=== PATIENT | female | born 2000 | race Caucasian/White ===

== ENCOUNTER → 2019-06-23 11:01 | Outpatient (BNVA) | payer BC, SELFPAY | PROVIDERS: PCP Nurse Practitioner Family; Visit Provider Nurse Practitioner Family | DX: I10 Essential (primary) hypertension (principal); R73.09 Other abnormal glucose; E11.9 Type 2 diabetes mellitus without complications; R53.83 Other fatigue; E78.2 Mixed hyperlipidemia; E55.9 Vitamin D deficiency, unspecified | CPT/HCPCS: 80053; 80061; 82306; 83036; 84443; 85025 ==

== ENCOUNTER 2019-07-01 10:53 | Outpatient (CLI) | payer BC, SELFPAY ==
--- NOTE | 2019-07-01 11:45 | US_ITS ---
WS: [id number] ULTRASOUND RIGHT BREAST HISTORY: lump COMPARISON: None available. TECHNIQUE: 2-D and Doppler. Ultrasound is directed to the 1:00 axis RIGHT breast at the area of palpable abnormality. There is no mass or soft tissue abnormality. No skin thickening or distortion. US/US breast RT limited* [id number] IMPRESSION: BI-RADS: 1-Negative FOLLOW-UP: Age 38
== END 2019-07-01 10:54 | disposition home or self-care (01) ==
LOC: RAD 11:01
PROVIDERS: PCP Nurse Practitioner Family; Visit Provider Nurse Practitioner
DX: N63.12 Unspecified lump in the right breast, upper inner quadrant (principal)
CPT/HCPCS: 76642

== ENCOUNTER → 2019-09-17 15:55 | Outpatient (BNVA) | payer BC, SELFPAY | PROVIDERS: PCP Nurse Practitioner Family; Visit Provider Nurse Practitioner Family | DX: N91.2 Amenorrhea, unspecified (principal); M79.671 Pain in right foot; M72.2 Plantar fascial fibromatosis; H60.90 Unspecified otitis externa, unspecified ear | CPT/HCPCS: 81025 ==

== ENCOUNTER 2019-09-19 09:50 | Outpatient (CLI) | payer BC, SELFPAY ==
--- NOTE | 2019-09-19 10:20 | XRR_ITS ---
PROCEDURE INFORMATION: Exam: XR Right Foot Complete Exam date and time: 09/19/2019 10:32 AM Age: 19 years old Clinical indication: Pain; Foot; Right; Additional info: Foot pain TECHNIQUE: Imaging protocol: XR Right foot. Views: 3 or more views. COMPARISON: No relevant prior studies available. FINDINGS: Bones/joints: hindfoot-midfoot and midfoot-forefoot articulations are normal. metatarsals and the phalanges without an acute process. subtalar joint and the tibiotalar joint appears normal. Soft tissues: Normal. XR/XR foot RT min 3V* [id number] IMPRESSION: Normal foot
== END 2019-09-19 09:51 | disposition home or self-care (01) ==
LOC: RAD 09:58
PROVIDERS: PCP Nurse Practitioner Family; Visit Provider Nurse Practitioner Family
DX: M79.671 Pain in right foot (principal); M72.2 Plantar fascial fibromatosis
CPT/HCPCS: 73630

== ENCOUNTER → 2019-11-12 10:36 | Outpatient (BNVA) | payer BC, SELFPAY | PROVIDERS: PCP Nurse Practitioner Family; Visit Provider Nurse Practitioner Family | DX: E11.9 Type 2 diabetes mellitus without complications (principal); E55.9 Vitamin D deficiency, unspecified; R53.83 Other fatigue | CPT/HCPCS: 80053; 83036; 85025 ==

== ENCOUNTER → 2020-04-19 10:21 | Outpatient (BNVA) | payer SELFPAY | PROVIDERS: PCP Nurse Practitioner Family; Visit Provider Nurse Practitioner Family | DX: E11.9 Type 2 diabetes mellitus without complications (principal); J02.0 Streptococcal pharyngitis | CPT/HCPCS: 80053 ==

== ENCOUNTER → 2020-06-25 08:44 | Outpatient (BNVA) | payer OTHER, SELFPAY | PROVIDERS: PCP Nurse Practitioner Family; Visit Provider Psychiatry & Neurology Neurology | DX: F33.2 Major depressive disorder, recurrent severe without psychotic features (principal); F41.1 Generalized anxiety disorder; F43.10 Post-traumatic stress disorder, unspecified | CPT/HCPCS: 90791 ==

== ENCOUNTER → 2020-07-02 11:22 | Outpatient (BNVA) | payer OTHER, SELFPAY | PROVIDERS: PCP Nurse Practitioner Family; Visit Provider Nurse Practitioner Family | DX: E55.9 Vitamin D deficiency, unspecified (principal); E11.9 Type 2 diabetes mellitus without complications; Z13.6 Encounter for screening for cardiovascular disorders; R53.83 Other fatigue | CPT/HCPCS: 80053; 80061; 81003; 82306; 83036; 84439; 84443; 85025 ==

== ENCOUNTER 2020-07-14 21:48 | Emergency (ER) | payer OTHER, SELFPAY ==
[2020-07-14 22:06] VITALS: BP 136/108; PULSE 124; RESP 21; TEMP 36.7; O2SAT 98; BMI 62.7
--- NOTE | 2020-07-14 22:21 | W.ED.GENADLT ---
HPI - General Adult General: Chief complaint: General Medical Stated complaint: HIGH B/P Time Seen by Provider: 07/14/20 22:18 History of Present Illness: HPI narrative: Patient is a 20-year-old female comes to the ED with possible anxiety attack. Patient says she does have a history of anxiety and depression. She also has a past medical history of type 2 diabetes and takes Metformin. 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 She says she is never had symptoms like this before. Denies any fever, chills, upper respiratory symptoms, abdominal pain, vomiting, bladder or bowel symptoms. Patient did say that she did not eat much today and is unsure may be that is causing her current symptoms. Associated symptoms: Reports dyspnea and nausea; Deny chest pain, headache(s), rash, palpitations or vomiting Review of Systems Const: Denies: fever(s), chills or fatigue Eyes: Denies: change in vision or eye discomfort ENMT: Denies: throat pain, odynophagia, nasal discharge or nasal congestion Card: Reports: lightheadedness; Denies: chest pain, palpitations, edema, swelling of feet/ankles, dyspnea on exertion or orthopnea Resp: Reports: dyspnea; Denies: productive cough or non-productive cough GI: Reports: nausea; Denies: abdominal pain, vomiting, diarrhea, constipation or hematochezia : Denies: flank pain, dysuria or hematuria Musc: Reports: back pain; Denies: neck pain or extremity swelling Skin/Breast: Denies: rash or new lesions Neuro: Denies: headache(s), numbness in extremities or weakness in extremities [facility] ED PFSH: Medical History Amenorrhea Anxiety delivery delivered Depression Diabetes mellitus, type II Fatigue History of pancreatitis Hypertension screen Strep pharyngitis Surgical History Status post cholecystectomy Social History Smoking and tobacco status: never smoked Second hand smoke exposure: No Alcohol intake: never Desire information about alcohol rehabilitation?: No Counseling given: No Desire information about substance/drug rehabilitation?: No Counseling given: No Caregiver/support person: Yes Lives independently: Yes Household members: spouse Physical Exam Const: COMMON NORMALS: patient oriented x3 and alert GENERAL APPEARANCE: cooperative and comfortable NUTRITIONAL APPEARANCE: obese morbidly obese HENMT: COMMON NORMALS: normocephalic HEAD & SCALP: normocephalic MOUTH: Normal oral and palatal mucosa present THROAT: posterior oropharynx normal and uvula midline Neck/C-Spine: COMMON NORMALS: supple GENERAL: Yes normal visual inspection Resp: COMMON NORMALS: normal respiratory effort, No retractions, No use of accessory muscles and clear to auscultation bilaterally EFFORT & INSPECTION: Yes able to speak in complete sentences, Yes tachypneic (21 resp), No respiratory distress and No labored AUSCULTATION: clear to auscultation bilaterally and no wheezes Cardio: COMMON NORMALS: regular rate, regular rhythm, S1 normal heart sound present, S2 normal heart sound present, No gallops present (Cardio), No clicks present (Cardio), No murmurs present (Cardio) and Peripheral pulses 2+ throughout RATE: regular rate RHYTHM: regular rhythm HEART SOUNDS: S1 normal heart sound present and S2 normal heart sound present PERIPHERAL PULSES: Peripheral pulses 2+ throughout GI: COMMON NORMALS: Normal to inspection, nondistended, normoactive bowel sounds present, Soft to palpation, non-tender and no masses PALPATION: Yes Soft to palpation : COMMON NORMALS: Yes no CVA tenderness BLADDER/KIDNEY EXAM: Yes no CVA tenderness Back/Pelvis: COMMON NORMALS: no CVA tenderness Extremity: COMMON NORMALS: normal to inspection Neuro: COMMON NORMALS: patient oriented x3 and moves all extremities SENSORIUM/ORIENTATION: Yes alert Skin: GENERAL SKIN EXAM: dry skin Course Reevaluation(s): Reevaluation #1: After patient received Vistaril her symptoms greatly improved. She also was given some Zofran to help with her nausea. Patient's respirations are normal at 18 and pulse 98. Time: 23:51 Vital Signs: Vital signs: Vital Signs Temperature 98.0 F 07/14/20 22:06 Pulse Rate 124 H 07/14/20 22:06 Respiratory Rate 21 H 07/14/20 22:06 Blood Pressure 136/108 07/14/20 22:06 Pulse Oximetry 98 07/14/20 22:06 MDM - General Adult MDM Narrative: Medical decision making narrative: Patient is a 20-year-old female comes to the ED with acute onset of lightheadedness, nausea, chest tightness and mid back pain. Exam findings patient tachypneic at 21 breaths/min lungs are clear to auscultation bilaterally. Chest x-ray shows no acute findings. CBC and CMP were unremarkable. hCG negative, D-dimer 0.27 which is normal and troponin negative. EKG showed normal sinus rhythm with no ST segment elevation or depression seen. Patient was given Vistaril and zofran while here in the ED and her symptoms greatly improved. Patient diagnosed with acute anxiety and discharged home. She was told to follow-up with PCP in 7 to 10 days reevaluation. Return to ED precautions given. Patient understood and agree with plan. Lab Data: Attestation: I reviewed the patient's lab results. Labs: Lab Results 07/14/20 07/14/20 07/14/20 Range/Units 23:00 23:00 23:00 WBC 8.0 (4.0-10.0) 10^3/ uL RBC 4.92 (4.1-5.3) 10^6/u L Hgb 14.0 (11.5-15.3) g/dL Hct 43.2 (37.0-47.0) % MCV 87.8 (81-99) fL MCH 28.5 (28.0-34.0) pg MCHC 32.4 (30.0-36.0) g/dL RDW 12.6 (12.1-15.1) % Plt Count 323 (130-400) 10^3/c mm MPV 10.1 (7.4-10.4) fL Neut % (Auto) 57.2 % Lymph % (Auto) 35.9 % [place] % (Auto) 5.3 % Eos % (Auto) 0.8 % Baso % (Auto) 0.5 % Neut # (Auto) 4.57 (1.8-7.7) 10^3/u L Lymph # (Auto) 2.9 (0.8-4.8) 10^3/u L [place] # (Auto) 0.4 (0.2-0.9) 10^3/u L Eos # (Auto) 0.1 (0.0-0.8) 10^3/u L Baso # (Auto) 0.0 (0.0-0.1) 10^3/u L Nucleated RBC % (a uto) 0 % Nucleated RBCs # 0.0 /100WBC D-Dimer (0-0.59) ug/mIFE U Sodium 138 (136-145) mmol/L Potassium 4.6 (3.5-5.1) mmol/L Chloride 101 (98-107) mmol/L Carbon Dioxide 25 (22-29) mmol/L Anion Gap 16.6 (5-19) BUN 15 (6-20) mg/dL Creatinine 0.6 (0.5-0.9) mg/dL GFR Calculation 125.0 (90-130) mL/min Glucose 173 H (65-115) mg/dL Calculated Osmolal ity 291 (285-295) mOsm/k g Calcium 9.3 (8.5-10.5) mg/dL Total Bilirubin 0.2 (0.15-1.2) mg/dL AST 12 (0-32) U/L ALT 17 (0-33) U/L Alkaline Phosphata se 79 (35-105) IU/L Troponin T Gen 5 n g/L 6 (0-10) ng/L Total Protein 7.4 (6.6-8.7) g/dL Albumin 4.7 (3.5-5.2) g/dL Globulin 2.7 (1.3-4.6) g/dL HCG, Qual (Negative) 07/14/20 07/14/20 Range/Units 23:00 23:00 WBC (4.0-10.0) 10^3/ uL RBC (4.1-5.3) 10^6/u L Hgb (11.5-15.3) g/dL Hct (37.0-47.0) % MCV (81-99) fL MCH (28.0-34.0) pg MCHC (30.0-36.0) g/dL RDW (12.1-15.1) % Plt Count (130-400) 10^3/c mm MPV (7.4-10.4) fL Neut % (Auto) % Lymph % (Auto) % [place] % (Auto) % Eos % (Auto) % Baso % (Auto) % Neut # (Auto) (1.8-7.7) 10^3/u L Lymph # (Auto) (0.8-4.8) 10^3/u L [place] # (Auto) (0.2-0.9) 10^3/u L Eos # (Auto) (0.0-0.8) 10^3/u L Baso # (Auto) (0.0-0.1) 10^3/u L Nucleated RBC % (a uto) % Nucleated RBCs # /100WBC D-Dimer <= 0.27 (0-0.59) ug/mIFE U Sodium (136-145) mmol/L Potassium (3.5-5.1) mmol/L Chloride (98-107) mmol/L Carbon Dioxide (22-29) mmol/L Anion Gap (5-19) BUN (6-20) mg/dL Creatinine (0.5-0.9) mg/dL GFR Calculation (90-130) mL/min Glucose (65-115) mg/dL Calculated Osmolal ity (285-295) mOsm/k g Calcium (8.5-10.5) mg/dL Total Bilirubin (0.15-1.2) mg/dL AST (0-32) U/L ALT (0-33) U/L Alkaline Phosphata se (35-105) IU/L Troponin T Gen 5 n g/L (0-10) ng/L Total Protein (6.6-8.7) g/dL Albumin (3.5-5.2) g/dL Globulin (1.3-4.6) g/dL HCG, Qual Negative (Negative) Imaging Data^: CXR: Attestation: I personally reviewed and interpreted this imaging study as follows: Radiologist's impression: [address] [address] XRay Report Signed Patient: Sharad Ghosh Unit #: [id number] : 2000 Age/Sex: 20 / F ADM Date: 07/14/20 Loc: ER Room/Bed: Attending Dr: Ordering Provider/Ordering MD: Cesar Abad Date of Service: 07/14/20 Procedure(s): XR chest 1V portable [id number] Accession Number(s): [id number] Report Number: [id number] PROCEDURE INFORMATION: Exam: XR Chest Exam date and time: 07/14/2020 10:35 PM Age: 20 years old Clinical indication: Sternal or substernal pain; Additional info: Chest tightness/ high BP TECHNIQUE: Imaging protocol: XR of the chest. Views: 1 view. COMPARISON: CR Chest 1 [place] [id number] 11/14/2017 4:39 AM FINDINGS: Lungs: Unremarkable. No consolidation. Pleural spaces: Unremarkable. No pleural effusion. No pneumothorax. Heart/Mediastinum: Unremarkable. No cardiomegaly. Bones/joints: Unremarkable. XR/XR chest 1V portable [id number] IMPRESSION: No acute findings. Dictated By: Barry Pacheco Signed By: Barry Pacheco Signed Date/Time: 07/14/202318 DD/ 16 EKG Data^: EKG 1: Attestation: I personally reviewed and interpreted this EKG as follows: EKG interpretation date: 07/14/20 Interpretation: Normal sinus rhythm, 98 bpm, no ST segment elevation or depression seen. Computer generated interpretation: Chest X-Ray 07/14/20 22:31 IMPRESSION: No acute findings. Discharge Plan Discharge Patient Disposition: Home Clinical Impression: Acute anxiety Condition: Stable Prescriptions: No Action ibuprofen 800 mg tablet 800 mg PO Q8H RF: 0 acetaminophen [Tylenol] 325 mg tablet 325 mg PO QID PRNRF: 0 cyclobenzaprine 10 mg tablet 10 mg PO TID 30 Days Qty: 30 RF: 0 lidocaine 5 % adhesive patch,medicated 1 patch topical DAILY 30 Days Qty: 30 RF: 0 (DME) Dexcom G4 Plating Inspector-Share Kit Misc See Rx Instructions .Route Qty: 1 RF: 11 metformin 1,000 mg tablet 1,000 mg PO BID 30 Days Qty: 60 RF: 2 Discharge Orders: Discharge ED (Routine); Ordered 07/15/20 Ordered By: Cesar Abad Referrals: DUY Santoro, SALES ADMINISTRATION SPECIALIST [Primary Care Provider] - Discharge Diet: Regular Discharge Activity: Increase activity as tolerated Patient Instructions: Anxiety (ED) Activity Restrictions/Additional Instructions: Follow-up with medical provider as directed in 7 to 10 days for reevaluation. Continue taking all home medications as prescribed. Return to the ER or your medical provider if condition worsens. Please read and understand discharge instructions. Thank you for choosing [facility] for your healthcare needs today. Please realize this is an emergency room and that we are providing you with a medical screening exam and this may not be complete and all inclusive of all the testing and or work up that you may need to determine your ailment or severity of your illness. It is very important that you follow up as instructed or that you return to the Emergency Department should you have concerns or if your condition changes or worsens in any way. Coding Level of Care Code ED Bleach Chlorinator for Corinne Fwkassandra Exam Comprehensive
--- NOTE | 2020-07-14 22:31 | ECG_ITS ---
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 Measurements Intervals [place] Rate: 98 P: 33 AK: 176 QRS: -10 QRSD: 116 T: 13 QT: 334 QTc: 426 Interpretive Statements SINUS RHYTHM WITH SINUS ARRHYTHMIA MODERATE INTRAVENTRICULAR CONDUCTION DELAY [110+ ms QRS DURATION] MODERATE VOLTAGE CRITERIA FOR LVH, CONSIDER NORMAL VARIANT [MEETS CRITERIA IN ONE OF: R(aVL), S(V1), R(V5), R(V5/V6)+S(V1)] No previous ECG available for comparison Electronically Signed On 07-15-2020 10:16:32 CDT by Willi Cuenca M.D. [email or web address]
--- NOTE | 2020-07-14 22:31 | XRR_ITS ---
PROCEDURE INFORMATION: Exam: XR Chest Exam date and time: 07/14/2020 10:35 PM Age: 20 years old Clinical indication: Sternal or substernal pain; Additional info: Chest tightness/ high BP TECHNIQUE: Imaging protocol: XR of the chest. Views: 1 view. COMPARISON: CR Chest 1 [place] [id number] 11/14/2017 4:39 AM FINDINGS: Lungs: Unremarkable. No consolidation. Pleural spaces: Unremarkable. No pleural effusion. No pneumothorax. Heart/Mediastinum: Unremarkable. No cardiomegaly. Bones/joints: Unremarkable. XR/XR chest 1V portable [id number] IMPRESSION: No acute findings.
[2020-07-14] MEDS: hyDROXYzine 25 mg Capsule 50 MG PO (22:58)
[2020-07-14 23:06] LABS: Basophils % 0.5 %; Eosinophils # 0.1 10^3/uL (0.0-0.8); Eosinophils % 0.8 %; Hematocrit 43.2 % (37.0-47.0); Lymphocytes # 2.9 10^3/uL (0.8-4.8); Lymphocytes % 35.9 %; Mean Corpuscular HGB Conc 32.4 g/dL (30.0-36.0); Mean Corpuscular Hemoglobin 28.5 pg (28.0-34.0); Mean Corpuscular Volume 87.8 fL (81-99); Mean Platelet Volume 10.1 fL (7.4-10.4); Monocytes # 0.4 10^3/uL (0.2-0.9); Monocytes % 5.3 %; Neutrophils # 4.57 10^3/uL (1.8-7.7); Neutrophils % 57.2 %; Nucleated Red Blood Cells % 0 %; Platelet Count 323 10^3/cmm (130-400); Red Blood Count 4.92 10^6/uL (4.1-5.3); Red Cell Distribution Width 12.6 % (12.1-15.1)
[2020-07-14 23:16] LABS: HCG, Serum Qual Negative (Negative)
[2020-07-14 23:24] LABS: Troponin T (5th) Once 6 ng/L (0-10)
[2020-07-14 23:26] LABS: Alanine Aminotransferase 17 U/L (0-33); Albumin Level 4.7 g/dL (3.5-5.2); Alkaline Phosphatase 79 IU/L (35-105); Anion Gap 16.6 (5-19); Aspartate Amino Transferase 12 U/L (0-32); Blood Urea Nitrogen 15 mg/dL (6-20); Calcium 9.3 mg/dL (8.5-10.5); Carbon Dioxide 25 mmol/L (22-29); Chloride 101 mmol/L (98-107); Globulin 2.7 g/dL (1.3-4.6); Glucose 173 mg/dL (65-115); Osmolality Calculated 291 mOsm/kg (285-295); Potassium 4.6 mmol/L (3.5-5.1); Sodium 138 mmol/L (136-145); Total Bilirubin 0.2 mg/dL (0.15-1.2); Total Protein 7.4 g/dL (6.6-8.7)
[2020-07-14 23:55] LABS: D Dimer <= 0.27 ug/mIFEU (0-0.59)
[2020-07-15] MEDS: ondansetron 2 mg/ML SDV 2 mL 4 MG IVP (00:08)
== END 2020-07-15 00:24 | disposition home or self-care (01) ==
PROVIDERS: Emergency Provider Physician Assistant; PCP Nurse Practitioner Family
DX: F41.9 Anxiety disorder, unspecified (principal); Z79.84 Long term (current) use of oral hypoglycemic drugs; E11.9 Type 2 diabetes mellitus without complications
CPT/HCPCS: 71045; 80053; 84484; 84703; 85025; 85378; 93005; 96374; 99283; J2405

== ENCOUNTER → 2020-09-20 11:54 | Outpatient (BNVA) | payer OTHER, SELFPAY | PROVIDERS: PCP Nurse Practitioner Family; Visit Provider Nurse Practitioner Family | DX: J06.9 Acute upper respiratory infection, unspecified (principal); Z20.822 Contact with and (suspected) exposure to COVID-19 | CPT/HCPCS: 87635 ==

== ENCOUNTER 2020-11-05 09:33 | Emergency (ER) | payer OTHER, SELFPAY ==
[2020-11-05 09:41] VITALS: BP 179/135; PULSE 74; RESP 15; TEMP 36.4; O2SAT 96; BMI 61.0
[2020-11-05] MEDS: acetaminophen 500 mg Tablet 1000 MG PO (11:32)
--- NOTE | 2020-11-05 11:38 | W.ED.GENADLT ---
HPI - General Adult General: Chief complaint: Urogenital-Female Stated complaint: difficulty urinating, flank pain Time Seen by Provider: 11/05/20 09:45 History of Present Illness: HPI narrative: CC: Difficulty urinating and flank pain HPI: [20] yo patient w/ hx of DM presenting to the ED w/ symptoms of b/l flank x 2 days and decreased urination x 1 day, nausea/vomiting. Patient has had decreased Po intake due to the nausea. She has had 1 episode of emesis. Denies hx of pyelonephritis in the past. No hx of abdominal surgeries, denies diarrhea/melena/hematochezia, vaginal discharge/bleeding/ or cramps. No associated hx of kidney stones. Denies chest pain, SOB, and palpitations today. Patient reports that she has had 1 day of difficulty urinating. Denies any bowel symptoms. Denies any injuries to the back. No history of IV drug use. Onset: 2 days ago Duration: ongoing Location: home Severity: moderate Review of Systems Narrative: Constitutional: No fever, no chills. HEENT: No vision changes CV: No chest pain, no palpitations PULM: No productive cough, no dyspnea. GI: No abdominal pain, +N/+V/-D, +b/l-sided flank pain. : +Difficulty urinating MSKEL: No muscle pain SKIN: No new rashes, no lesions. NEURO: No headache, no focal weakness. HEME: No visible bruises PSYCH: Normal mood PFSH ED PFSH: Medical History (Updated 11/05/20 @ 11:44 by Dwight Sauer MD) Amenorrhea Anxiety delivery delivered Depression Diabetes mellitus, type II Fatigue History of pancreatitis Hypertension screen Psychiatric care Strep pharyngitis Surgical History Status post cholecystectomy Social History Smoking and tobacco status: never smoked Second hand smoke exposure: No Alcohol intake: never Desire information about alcohol rehabilitation?: No Counseling given: No Desire information about substance/drug rehabilitation?: No Counseling given: No Caregiver/support person: Yes Lives independently: Yes Household members: spouse Female Reproductive History: Date of last menstrual period: 10/15/20 Physical Exam Narrative: EXAM NARRATIVE: Head: Atraumatic Eyes: PERRL, conjunctiva without injection, eyes tracking ENT: Mucous membrane moist NECK: Supple without lymphadenopathy LUNGS: LCTAB CV: RRR ABDOMEN: Soft, b/l-sided flank tenderness, no guarding or rebound tenderness, no doran?s sign, no rovsing/mcburney/obturator signs EXTREMITY: Normal ROM SKIN: No rash or erythema NEURO: Awake and alert. No focal weakness PSYCH: Cooperative mood and affect Course Vital Signs: Vital signs: Vital Signs Temperature 97.5 F L 11/05/20 09:41 Pulse Rate 75 11/05/20 15:39 Respiratory Rate 18 11/05/20 15:39 Blood Pressure 165/106 11/05/20 15:39 Pulse Oximetry 100 11/05/20 15:39 MDM - General Adult MDM Narrative: Medical decision making narrative: [20]yo patient w/ hx of DM presenting with dysuria/flank pain, N/V and on exam b/l L >R-sided CVA tenderness. Will workup for pyelonephritis vs obstructive uropathy. Unlikely Infected Urolithiasis, AAA, cholecystitis, pancreatitis, SBO, appendicitis, or other acute abdomen. Workup: CBC, CMP, Lipase, UA reflex Urine culture, CT if persistent pain Lab findings: wnl CT did not show any signs of obstructive uropathy. On reassessment, patient improved with medication. Patient is able to tolerate p.o. without any difficulty. Continues to be medically stable without any focal tenderness to palpation after medication. Patient is urinating without any difficulty. Creatinine within normal limit. No suspicion for any acute processes at this time. Position: Discharge. Patient is given strict return question any worsening pain/nausea/vomiting, fever/chills, or any new or concerning complaints. Lab Data: Labs: Lab Results 11/05/20 11/05/20 11/05/20 Range/Units 11:50 11:50 11:50 WBC 10.0 (4.0-10.0) 10^3/ uL RBC 4.69 (4.1-5.3) 10^6/u L Hgb 13.5 (11.5-15.3) g/dL Hct 42.2 (37.0-47.0) % MCV 90.0 (81-99) fl MCH 28.8 (28.0-34.0) pg MCHC 32.0 (30.0-36.0) g/dL RDW 13.2 (12.1-15.1) % Plt Count 326 (130-400) 10^3/c mm MPV 9.8 (7.4-10.4) fL Neut % (Auto) 59.2 % Lymph % (Auto) 30.7 % [place] % (Auto) 6.9 % Eos % (Auto) 2.6 % Baso % (Auto) 0.4 % Neut # (Auto) 5.95 (1.8-7.7) 10^3/u L Lymph # (Auto) 3.1 (0.8-4.8) 10^3/u L [place] # (Auto) 0.7 (0.2-0.9) 10^3/u L Eos # (Auto) 0.3 (0.0-0.8) 10^3/u L Baso # (Auto) 0.0 (0.0-0.1) 10^3/u L Nucleated RBC % (a uto) 0 % Nucleated RBCs # 0.0 /100WBC Sodium 140 (136-145) mmol/L Potassium 4.2 (3.5-5.1) mmol/L Chloride 104 (98-107) mmol/L Carbon Dioxide 25 (22-29) mmol/L Anion Gap 14.7 (5-19) BUN 11 (6-20) mg/dL Creatinine 0.5 (0.5-0.9) mg/dL GFR Calculation 154.3 H (90-130) mL/min Glucose 126 H (65-115) mg/dL Calculated Osmolal ity 287 (285-295) mOsm/k g Calcium 8.9 (8.5-10.5) mg/dL Total Bilirubin 0.3 (0.15-1.2) mg/dL AST 16 (0-32) U/L ALT 16 (0-33) U/L Alkaline Phosphata se 63 (35-105) IU/L Total Protein 7.3 (6.6-8.7) g/dL Albumin 4.2 (3.5-5.2) g/dL Globulin 3.2 (1.3-4.6) g/dL Lipase 15 (13-60) U/L Urine Color (Yellow) Urine Appearance (CLEAR) Urine pH (5-7) Ur Specific Gravit y (1.005-1.030) Urine Protein (Negative) Urine Glucose (UA) (Normal) Urine Ketones (Negative) Urine Blood (Negative) Urine Nitrate (Negative) Urine Bilirubin (Negative) Urine Urobilinogen (Negative) mg/dL Ur Leukocyte Yesi ase (Negative) Urine HCG, Qual Negative (Negative) 11/05/20 Range/Units 11:50 WBC (4.0-10.0) 10^3/ uL RBC (4.1-5.3) 10^6/u L Hgb (11.5-15.3) g/dL Hct (37.0-47.0) % MCV (81-99) fl MCH (28.0-34.0) pg MCHC (30.0-36.0) g/dL RDW (12.1-15.1) % Plt Count (130-400) 10^3/c mm MPV (7.4-10.4) fL Neut % (Auto) % Lymph % (Auto) % [place] % (Auto) % Eos % (Auto) % Baso % (Auto) % Neut # (Auto) (1.8-7.7) 10^3/u L Lymph # (Auto) (0.8-4.8) 10^3/u L [place] # (Auto) (0.2-0.9) 10^3/u L Eos # (Auto) (0.0-0.8) 10^3/u L Baso # (Auto) (0.0-0.1) 10^3/u L Nucleated RBC % (a uto) % Nucleated RBCs # /100WBC Sodium (136-145) mmol/L Potassium (3.5-5.1) mmol/L Chloride (98-107) mmol/L Carbon Dioxide (22-29) mmol/L Anion Gap (5-19) BUN (6-20) mg/dL Creatinine (0.5-0.9) mg/dL GFR Calculation (90-130) mL/min Glucose (65-115) mg/dL Calculated Osmolal ity (285-295) mOsm/k g Calcium (8.5-10.5) mg/dL Total Bilirubin (0.15-1.2) mg/dL AST (0-32) U/L ALT (0-33) U/L Alkaline Phosphata se (35-105) IU/L Total Protein (6.6-8.7) g/dL Albumin (3.5-5.2) g/dL Globulin (1.3-4.6) g/dL Lipase (13-60) U/L Urine Color Yellow (Yellow) Urine Appearance Clear (CLEAR) Urine pH 5 (5-7) Ur Specific Gravit y 1.025 (1.005-1.030) Urine Protein Neg (Negative) Urine Glucose (UA) Norm (Normal) Urine Ketones Negative (Negative) Urine Blood Neg (Negative) Urine Nitrate Negative (Negative) Urine Bilirubin Neg (Negative) Urine Urobilinogen Norm (Negative) mg/dL Ur Leukocyte Yesi ase Negative (Negative) Urine HCG, Qual (Negative) Imaging Data^: Other Imaging: Radiologist's impression: [facility] [id number] Scan ReportSigned Patient: Adriana Ghosh #: [id number]: 2000Acct#:[id number]/Sex: 20 / FADM Date: 11/05/20Loc: ERRoom/Bed:Attending Dr: Ordering Provider/Ordering MD: Dwight Sauer MD Date of Service: 11/05/20 Procedure(s): CT abdomen pelvis w con* [id number] Accession Number(s): [id number] Report Number: [id number] WS: [id number] CT scan of the abdomen and pelvis with IV contrast. Additional two-dimensional coronal and sagittal reconstruction was performed. 11/05/2020 Clinical Data: rule out b/l hydro Comparison: CT abdomen and pelvis, 07/19/2018. DLP: 2069.[address] [facility] use at least one of these dose optimization techniques: automated exposure control; mA and/or kV adjustment per patient size (includes targeted exams where dose is matched to clinical indication); or iterative reconstruction. Findings: The lower lungs show no nodules, masses or effusions. The liver, spleen, adrenal glands and pancreas are normal. There are clips in the gallbladder fossa from a cholecystectomy. The kidneys show equal bilateral contrast excretion with no cyst or masses. No renal calculi or hydronephrosis seen. The abdominal aorta is normal in size. No appendicitis or diverticulitis is seen. The stomach, small bowel and colon are not remarkable. There is a small fat-containing umbilical hernia. No abscess, adenopathy, ascites, mass, obstruction or free air is seen. The bladder is unremarkable. The uterus is normal. No inguinal hernia is seen. The bones of the lower thorax, lumbar spine, pelvis, and hips are normal. CT/CT abdomen pelvis w con* [id number] Impression: Negative for acute intra-abdominal or pelvic abnormalities. Dictated By:Margoth Bingham MDSigned By:Margoth Bingham MDSigned Date/Time:11/05/20 1544DD/ 1539 Discharge Plan Discharge Patient Disposition: Home Clinical Impression: Acute flank pain, Nausea & vomiting Condition: Stable Prescriptions: New Zofran 4 mg tablet 4 mg PO TID PRN (Reason: nausea and vomiting) 4 Days Qty: 12 RF: 0 acetaminophen 500 mg tablet 500 mg PO Q6H PRN (Reason: pain) 5 Days Qty: 20 RF: 0 No Action ibuprofen 800 mg tablet 800 mg PO Q8H RF: 0 acetaminophen [Tylenol] 325 mg tablet 325 mg PO QID PRN (Reason: Pain) RF: 0 lidocaine 5 % adhesive patch,medicated 1 patch topical DAILY 30 Days Qty: 30 RF: 0 propranolol 20 mg tablet 20 mg PO BID PRN (Reason: anxiety) Qty: 60 RF: 0 duloxetine 60 mg capsule,delayed release(DR/EC) 60 mg PO DAILY Qty: 30 RF: 2 (DME) Dexcom G4 Dehydrating Press Operator-Share Kit Mis See Rx Instructions .Route Qty: 1 RF: 11 metformin 1,000 mg tablet 1,000 mg PO BID 30 Days Qty: 60 RF: 2 sumatriptan succinate 50 mg tablet See Rx Instructions .ROUTE .COMPLEX Qty: 27 RF: 0 melatonin 5 mg Tablet 5 mg PO BEDTIME RF: 0 Discharge Orders: Discharge ED (Routine); Ordered 11/05/20 Ordered By: Dwight Sauer Referrals: DUY Santoro, DIE CUTTER APPRENTICE [Primary Care Provider] - Discharge Diet: Advance as tolerated Discharge Activity: Resume usual activity Patient Instructions: Abdominal Pain (ED) Activity Restrictions/Additional Instructions: Come back to the emergency room if your pain worsens, if any fever or chills, unable to hold down food, if you have any new or concerning complaints. Coding Level of Care Code ED Pharmacy Intern for Corinne Russell
[2020-11-05] MEDS: ondansetron 2 mg/ML SDV 2 mL 4 MG IVP (11:39)
[2020-11-05] MEDS: sodium chloride 0.9% 1,000 ML 999 ML IV (11:39)
[2020-11-05 12:00] LABS: Add Urine Microscopic? NO; Charge for UA Resulting for Rev
[2020-11-05 12:03] LABS: Basophils % 0.4 %; Eosinophils # 0.3 10^3/uL (0.0-0.8); Eosinophils % 2.6 %; Hematocrit 42.2 % (37.0-47.0); Hemoglobin 13.5 g/dL (11.5-15.3); Lymphocytes # 3.1 10^3/uL (0.8-4.8); Lymphocytes % 30.7 %; Mean Corpuscular Hemoglobin 28.8 pg (28.0-34.0); Mean Platelet Volume 9.8 fL (7.4-10.4); Monocytes # 0.7 10^3/uL (0.2-0.9); Monocytes % 6.9 %; Neutrophils # 5.95 10^3/uL (1.8-7.7); Neutrophils % 59.2 %; Nucleated Red Blood Cells % 0 %; Platelet Count 326 10^3/cmm (130-400); Red Blood Count 4.69 10^6/uL (4.1-5.3); Red Cell Distribution Width 13.2 % (12.1-15.1)
[2020-11-05 12:17] LABS: Bilirubin Urine Neg (Negative); Blood Urine Neg (Negative); Glucose Urine UA Norm (Normal); Ketones Urine Negative (Negative); Leukocyte Esterase Urine Negative (Negative); Nitrate Urine Negative (Negative); Protein Urine Neg (Negative); Specific Gravity, Urine 1.025 (1.005-1.030); Urine Appearance Clear (CLEAR); Urine Color Yellow (Yellow); Urobilinogen Urine Norm (Negative); pH Urine 5 (5-7)
[2020-11-05 12:21] LABS: Alanine Aminotransferase 16 U/L (0-33); Albumin Level 4.2 g/dL (3.5-5.2); Alkaline Phosphatase 63 IU/L (35-105); Chloride 104 mmol/L (98-107); Potassium 4.2 mmol/L (3.5-5.1); Sodium 140 mmol/L (136-145)
[2020-11-05 13:16] LABS: Anion Gap 14.7 (5-19); Aspartate Amino Transferase 16 U/L (0-32); Blood Urea Nitrogen 11 mg/dL (6-20); Calcium 8.9 mg/dL (8.5-10.5); Carbon Dioxide 25 mmol/L (22-29); Globulin 3.2 g/dL (1.3-4.6); Glomerular Filtration Rate 154.3 mL/min (90-130); Glucose 126 mg/dL (65-115); Lipase 15 U/L (13-60); Osmolality Calculated 287 mOsm/kg (285-295); Total Bilirubin 0.3 mg/dL (0.15-1.2); Total Protein 7.3 g/dL (6.6-8.7)
--- NOTE | 2020-11-05 13:22 | CT_ITS ---
WS: [id number] CT scan of the abdomen and pelvis with IV contrast. Additional two-dimensional coronal and sagittal r econstruction was performed. 11/05/2020 Clinical Data: rule out b/l hydro Comparison: CT abdomen and pelvis, 07/19/2018. DLP: 2069.[address] scans at [facility] use at least one of these dose optimization techniques: automated e xposure control; mA and/or kV adjustment per patient size (includes targeted exams where dose is matc hed to clinical indication); or iterative reconstruction. Findings: The lower lungs show no nodules, masses or effusions. The liver, spleen, adrenal glands and pancreas are normal. There are clips in the gallbladder fossa f rom a cholecystectomy. The kidneys show equal bilateral contrast excretion with no cyst or masses. No renal calculi or hydro nephrosis seen. The abdominal aorta is normal in size. No appendicitis or diverticulitis is seen. The stomach, small bowel and colon are not remarkable. The re is a small fat-containing umbilical hernia. No abscess, adenopathy, ascites, mass, obstruction or free air is seen. The bladder is unremarkable. The uterus is normal. No inguinal hernia is seen. The bones of the lower thorax, lumbar spine, pelvis, and hips are normal. CT/CT abdomen pelvis w con* [id number] Impression: Negative for acute intra-abdominal or pelvic abnormalities.
[2020-11-05] MEDS: iohexol 300 mg/mL 100 mL Btl IV (15:34)
[2020-11-05 15:39] VITALS: BP 165/106; PULSE 75; RESP 18; O2SAT 100
== END 2020-11-05 16:08 | disposition home or self-care (01) ==
PROVIDERS: Physician Assistant; Emergency Provider Emergency Medicine; PCP Nurse Practitioner Family
DX: R10.9 Unspecified abdominal pain (principal); R11.2 Nausea with vomiting, unspecified; Z79.84 Long term (current) use of oral hypoglycemic drugs; E11.9 Type 2 diabetes mellitus without complications
CPT/HCPCS: 74177; 80053; 81003; 81025; 83690; 85025; 96361; 96374; 99283; J2405; J7030; Q9967

== ENCOUNTER 2020-11-20 01:15 | Emergency (ER) | payer OTHER, SELFPAY ==
[2020-11-20 01:28] VITALS: BP 158/96; PULSE 64; RESP 18; TEMP 36.6; O2SAT 96; BMI 60.0
--- NOTE | 2020-11-20 01:49 | ED_ITS ---
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 Has a history of back problems MD elicited complaint: back injury Pertinent past history: prior back pain Onset (ago): minute(s) Timing: intermittent Severity: mild Similar Symptoms Previously: No Quality: burning Location: thoracic spine and left upper back Radiation: none Exacerbating factors: movement and lifting Relieving factors: immobilization Context: while lifting and turning/twisting Associated symptoms: Reports no associated symptoms; Deny abdominal pain, chills, fever(s), nausea or vomiting Review of Systems Const: Denies: fever(s), chills or body aches Eyes: Denies: change in vision or blurry vision ENMT: Denies: throat pain or nasal congestion Card: Denies: chest pain or dyspnea on exertion Resp: Denies: dyspnea, productive cough or non-productive cough GI: Denies: abdominal pain, nausea or vomiting Musc: Reports: back pain; Denies: extremity pain Skin/Breast: Denies: rash Neuro: Denies: headache(s) Psych: Denies: anxiety or depression Jeff/Lymph: Denies: easy bruising [facility] ED PFSH: Medical History (Updated 11/20/20 @ 01:45 by MIKE Dudley) Amenorrhea Anxiety delivery delivered Depression Diabetes mellitus, type II Fatigue History of pancreatitis Hypertension screen Psychiatric care Strep pharyngitis Surgical History Status post cholecystectomy Social History Smoking and tobacco status: never smoked Second hand smoke exposure: No Alcohol intake: never Desire information about alcohol rehabilitation?: No Counseling given: No Desire information about substance/drug rehabilitation?: No Counseling given: No Caregiver/support person: Yes Lives independently: Yes Household members: spouse Female Reproductive History: Date of last menstrual period: 10/15/20 Physical Exam Const: COMMON NORMALS: no acute distress GENERAL APPEARANCE: cooperative Resp: COMMON NORMALS: normal respiratory effort Back/Pelvis: THORACIC SPINE/UPPER BACK: Yes thoracic ROM normal, No thoracic spinal tenderness, Yes paraspinal muscle tenderness Thoracic paraspinal muscle tenderness: left and No paraspinal muscle spasm Psych: COMMON NORMALS: mental status grossly normal Course Vital Signs: Vital signs: Vital Signs Temperature 97.8 F 11/20/20 01:28 Pulse Rate 64 11/20/20 01:28 Respiratory Rate 18 11/20/20 01:28 Blood Pressure 158/96 11/20/20 01:28 Pulse Oximetry 96 11/20/20 01:28 Discharge Plan Discharge Patient Disposition: Home Clinical Impression: Upper back strain Qualifiers: Encounter type: initial encounter Qualified Code(s): S29.012A - Strain of muscle and tendon of back wall of thorax, initial encounter Condition: Stable Prescriptions: New Celebrex 100 mg capsule 100 mg PO BID Qty: 20 RF: 0 No Action ibuprofen 800 mg tablet 800 mg PO Q8H RF: 0 acetaminophen [Tylenol] 325 mg tablet 325 mg PO QID PRN (Reason: Pain) RF: 0 lidocaine 5 % adhesive patch,medicated 1 patch topical DAILY 30 Days Qty: 30 RF: 0 propranolol 20 mg tablet 20 mg PO BID PRN (Reason: anxiety) Qty: 60 RF: 0 duloxetine 60 mg capsule,delayed release(DR/EC) 60 mg PO DAILY Qty: 30 RF: 2 (DME) Dexcom G4 Spinning Lathe Operator Hydraulic-Share Kit Misc See Rx Instructions .Route Qty: 1 RF: 11 metformin 1,000 mg tablet 1,000 mg PO BID 30 Days Qty: 60 RF: 2 sumatriptan succinate 50 mg tablet See Rx Instructions .ROUTE .COMPLEX Qty: 27 RF: 0 melatonin 5 mg Tablet 5 mg PO BEDTIME RF: 0 Discharge Orders: Discharge ED (Routine); Ordered 11/20/20 Ordered By: Diomedes Lakhani Referrals: DUY Santoro, STAFF ELECTRICAL ENGINEER [Primary Care Provider] - Discharge Diet: Usual diet Discharge Activity: Increase activity as tolerated and Limit activity as instructed Patient Instructions: Core Strengthening Exercises (GEN) Activity Restrictions/Additional Instructions: Take medication as directed. No lifting over 10 to 15 pounds or pulling or tugging on weights greater than 10 to 15 pounds for next 2 to 3 weeks. Apply ice and alternate with moist heat to area there is discomfort. Follow-up [place] works as scheduled. Coding Level of Care Code ED Medical Biller Coder for Corinne Russell
[2020-11-20] MEDS: CELEcoxib 200 mg Capsule 400 MG PO (02:10)
[2020-11-20 02:12] VITALS: PULSE 64; O2SAT 99
== END 2020-11-20 02:12 | disposition home or self-care (01) ==
PROVIDERS: Emergency Provider Nurse Practitioner Family; PCP Nurse Practitioner Family
DX: S29.012A Strain of muscle and tendon of back wall of thorax, initial encounter (principal); Z79.84 Long term (current) use of oral hypoglycemic drugs; E11.9 Type 2 diabetes mellitus without complications; X50.9XXA Other and unspecified overexertion or strenuous movements or postures, initial encounter; Y93.F2 Activity, caregiving, lifting; Y99.0 Civilian activity done for income or pay
CPT/HCPCS: 99282

== ENCOUNTER 2020-12-29 06:44 | Emergency (ER) | payer OTHER, SELFPAY ==
[2020-12-29] VITALS (7 sets, daily range): BP systolic 139–184; BP diastolic 104–121; PULSE 87–110; RESP 16–25; TEMP 36.6; O2SAT 96–100; BMI 61.7
--- NOTE | 2020-12-29 07:11 | CT_ITS ---
WS: [id number] CTA OF THE CHEST WITH PULMONARY EMBOLISM PROTOCOL TECHNIQUE: High-resolution contrast enhanced CTA of the chest with coronal and sagittal reformatted i mages with pulmonary embolism protocol. MIP images are also reviewed. CLINICAL INFORMATION: eval pe, also look for dissection COMPARISON: None. DLP: 2182.[address] scans at [facility] use at least one of these dose optimization techniques: automated e xposure control; mA and/or kV adjustment per patient size (includes targeted exams where dose is matc hed to clinical indication); or iterative reconstruction. FINDINGS: Exam is somewhat limited due to body habitus with beam hardening artifact Cardiomegaly. Proximal main pulmonary arteries are normal. Segmental and subsegmental pulmonary arter ies not well evaluated. No evidence of proximal pulmonary embolus. Normal caliber thoracic aorta. No evidence of aortic dissection. Visualized upper abdominal aorta is normal. Both lungs are well aerated. No acute pulmonary infiltrates. No focal pneumonia or pleural fluid. No mediastinal or hilar lymphadenopathy. Cholecystectomy clips. Hepatomegaly. Splenomegaly. Small esophageal hiatal hernia. Adrenal glands are normal. CT/CT angio chest PE protcl [id number] IMPRESSION: 1. Exam is somewhat limited due to beam hardening artifact from body habitus. Proximal main pulmonary arteries are normal. No evidence of proximal pulmonary embolus. Distal pulmonary arteries not well evaluated. 2. Normal caliber thoracic aorta. No evidence of dissection. 3. Cardiomegaly. 4. Both lungs are well aerated. No acute pulmonary infiltrates. 5. Hepatomegaly and splenomegaly. This is stable in appearance since [address] abdomen pelvis November 05, 2020 Notified Dwight Sauer MD at 12/29/2020 8:26 AM.
--- NOTE | 2020-12-29 07:11 | ECG_ITS ---
[facility] Test Date: 2020-12-29 Pat Name: Sharad Ghosh Department: Room: Gender: Female Airline Customer Service Agent: : 2000 Requested By: Dwight Sauer Order Number: [id number] Ginger MD: Rene Gill M.D. Measurements Intervals [place] Rate: 104 P: 35 MA: 160 QRS: -9 QRSD: 112 T: 20 QT: 348 QTc: 459 Interpretive Statements SINUS TACHYCARDIA MODERATE INTRAVENTRICULAR CONDUCTION DELAY [110+ ms QRS DURATION] MINIMAL VOLTAGE CRITERIA FOR LVH, CONSIDER NORMAL VARIANT [MEETS CRITERIA IN ONE OF: R(aVL), S(V1), R(V5), R(V5/V6)+S(V1)] Compared to ECG 07/14/2020 23:01:00 Sinus rhythm no longer present Sinus arrhythmia no longer present Electronically Signed On 12-30-2020 17:12:57 CDT by Rene Gill M.D. [id number] f
--- NOTE | 2020-12-29 07:12 | XRR_ITS ---
PROCEDURE INFORMATION: Exam: XR Chest Exam date and time: 12/29/2020 7:12 AM Age: 20 years old Clinical indication: Angina; Patient HX: SOB, chest pain this am; Additional info: Dyspena TECHNIQUE: Imaging protocol: XR of the chest. Views: 1 view. Total images: 1 COMPARISON: CR XR chest 1V portable [id number] 07/14/2020 10:36 PM FINDINGS: Lungs: Unremarkable. No consolidation. Pleural spaces: Unremarkable. No pleural effusion. No pneumothorax. Heart/Mediastinum: Unremarkable. No cardiomegaly. Bones/joints: Unremarkable. XR/XR chest 1V portable [id number] IMPRESSION: No acute findings. Radiation Dose CTDIVOL = (mGy): DLP = (mGy-cm)
--- NOTE | 2020-12-29 07:19 | ED_ITS ---
HPI - General Adult General: Chief complaint: Chest Pain Stated complaint: CP, HTN: SENT FROM 2ND FLOOR/WORK Time Seen by Provider: 12/29/20 06:45 History of Present Illness: HPI narrative: Patient is a 20-year-old female with a history of diagnosis, bilateral tubal ligation, cholecystectomy who presents the emergency room for evaluation of sudden onset tearing chest pain on the right side radiating towards the back which started at 530 this morning. Patient was at work upstairs when this all happened. Since then, patient still reports sharp chest pain on the right side. Patient denies any pleuritic chest pain, cough, runny nose, sore throat, fever/chills, squeezing chest pain, exertional chest pain or shortness of breath. Patient denies any history of DVTs in the past, recent immobilization or surgery, OCP use. No family history of aortic pathologies. Patient says that she does not have elevated blood pressure however today was noted to have a blood pressure 174/121. Denies any recent stress or injuries at work. Onset: 5:30am Duration: 2 hrs ago Location: work Severity:moderate/severe Review of Systems Narrative: Constitutional: No fever, no chills. HEENT: No vision changes CV: +chest pain, no palpitations PULM: no cough, no dyspnea. GI: No abdominal pain, no N/V/D. : No dysuria MSKEL: No muscle pain SKIN: No new rashes, no lesions. NEURO: No headache, no focal weakness. HEME: No visible bruises PSYCH: Normal mood PFSH ED PFSH: Medical History Amenorrhea Anxiety delivery delivered Depression Diabetes mellitus, type II Fatigue History of pancreatitis Hypertension screen Psychiatric care Strep pharyngitis Surgical History Status post cholecystectomy Social History Smoking and tobacco status: never smoked Second hand smoke exposure: No Alcohol intake: never Desire information about alcohol rehabilitation?: No Counseling given: No Desire information about substance/drug rehabilitation?: No Counseling given: No Caregiver/support person: Yes Lives independently: Yes Household members: spouse Female Reproductive History: Date of last menstrual period: 10/15/20 Physical Exam Narrative: EXAM NARRATIVE: Head: Atraumatic Eyes: PERRL, conjunctiva without injection ENT: Mucous membrane moist NECK: Supple, ROM intact LUNGS: LCTAB, no crackles/rhonchi CV: Sinus tachycardia, 2+ b/l UE radial pulses ABDOMEN: Soft, No focal TTP. NO guarding rebound, guarding, rigidity. No CVA tenderness to percussion. Neg Elliott/Neg McBurney's point tenderness, no suprabupic tenderness to palpation. EXTREMITY: Normal ROM SKIN: No rash or erythema NEURO: Awake and alert, no focal motor deficits PSYCH: Normal mood and affect Course Vital Signs: Vital signs: Vital Signs Temperature 97.8 F 12/29/20 07:46 Pulse Rate 94 12/29/20 09:40 Respiratory Rate 21 H 12/29/20 09:40 Blood Pressure 184/110 12/29/20 09:40 Pulse Oximetry 100 12/29/20 09:40 MDM - General Adult MDM Narrative: Medical decision making narrative: 20F w/ hx of pancreatitis, DM, prior cholecystectomy presenting to the ED with new osnet of sharp/stabbing R sided chest pain since 5:30am. On exam, patient has reassuring vital. Blood pressure on repeat measurement is noted to be elevated again to 182/124. Pulses are in the upper extremity are equal bilaterally. No Cheri signs. No crackles on exam. Elevated blood pressure and sudden onset of ripping chest pain, will evaluate for dissection. Workup: CBC, CMP, Lipase, Troponin x 2, EKG, CTA chest rule out dissection and PE Intervention: IVF and tylenol Lab work obtained troponin x2 within normal limit. CT did not show any signs of dissection at this time. Patient's heart rate and pain improved after IVF. It showed cardiomegaly with hepatosplenomegaly that is consistent with prior. I have given patient follow- up with a primary care provider for further evaluation of the symptoms. Disposition: Discharge. Patient counseled regarding diagnostic impression, treatment plan. Patient given ED strict return precautions to return for continuation, worsening, or development of new symptoms. Instructed to f/u w/ PCP regarding symptoms today. Patient verbalized understanding. Lab Data: Labs: Lab Results 12/29/20 12/29/20 12/29/20 07:30 07:30 07:30 WBC 9.4 10^3/uL 10^3/ uL (4.0-10.0) RBC 4.94 10^6/uL 10^6 /uL (4.1-5.3) Hgb 14.2 g/dL g/dL (11.5-15.3) Hct 44.2 % % (37.0-47.0) MCV 89.5 fl fl (81-99) MCH 28.7 pg pg (28.0-34.0) MCHC 32.1 g/dL g/dL (30.0-36.0) RDW 12.8 % % (12.1-15.1) Plt Count 374 10^3/cmm 10^3 /cmm (130-400) MPV 9.8 fL fL (7.4-10.4) Neut % (Auto) 60.0 % % Lymph % (Auto) 33.9 % % [place] % (Auto) 4.8 % % Eos % (Auto) 0.6 % % Baso % (Auto) 0.5 % % Neut # (Auto) 5.64 10^3/uL 10^3 /uL (1.8-7.7) Lymph # (Auto) 3.2 10^3/uL 10^3/ uL (0.8-4.8) [place] # (Auto) 0.5 10^3/uL 10^3/ uL (0.2-0.9) Eos # (Auto) 0.1 10^3/uL 10^3/ uL (0.0-0.8) Baso # (Auto) 0.1 10^3/uL 10^3/ uL (0.0-0.1) Nucleated RBC % (a uto) 0 % % Nucleated RBCs # 0.0 /100WBC /100W BC Sodium 139 mmol/L mmol/L (136-145) Potassium 4.0 mmol/L mmol/L (3.5-5.1) Chloride 101 mmol/L mmol/L (98-107) Carbon Dioxide 26 mmol/L mmol/L (22-29) Anion Gap 16.0 (5-19) BUN 11 mg/dL mg/dL (6-20) Creatinine 0.7 mg/dL mg/dL (0.5-0.9) GFR Calculation 104.6 mL/min mL/m in (90-130) Glucose 153 mg/dL H mg/dL (65-115) Calculated Osmolal ity 290 mOsm/kg mOsm/ kg (285-295) Calcium 9.6 mg/dL mg/dL (8.5-10.5) Total Bilirubin 0.2 mg/dL mg/dL (0.15-1.2) AST 13 U/L U/L (0-32) ALT 15 U/L U/L (0-33) Alkaline Phosphata se 82 IU/L IU/L (35-105) Troponin T Baselin e 8 ng/L ng/L (0-10) Troponin T 120 Min [place] Troponin T Total Protein 7.5 g/dL g/dL (6.6-8.7) Albumin 4.4 g/dL g/dL (3.5-5.2) Globulin 3.1 g/dL g/dL (1.3-4.6) Lipase 17 U/L U/L (13-60) 12/29/20 09:36 WBC RBC Hgb Hct MCV MCH MCHC RDW Plt Count MPV Neut % (Auto) Lymph % (Auto) [place] % (Auto) Eos % (Auto) Baso % (Auto) Neut # (Auto) Lymph # (Auto) [place] # (Auto) Eos # (Auto) Baso # (Auto) Nucleated RBC % (a uto) Nucleated RBCs # Sodium Potassium Chloride Carbon Dioxide Anion Gap BUN Creatinine GFR Calculation Glucose Calculated Osmolal ity Calcium Total Bilirubin AST ALT Alkaline Phosphata se Troponin T Baselin e Troponin T 120 Min [place] 7.06 ng/L ng/L (0-10) [place] Troponin T -0.94 ABS# L ABS# (0-10) Total Protein Albumin Globulin Lipase Imaging Data^: Other Imaging: Radiologist's impression: [address] [id number] Scan ReportSigned Patient: Sharad Ghosh #: [id number]: 2000Acct#:[id number]/Sex: 20 / FADM Date: 12/29/20Loc: ERRoom/Bed:Attending Dr: Ordering Provider/Ordering MD: Dwight Sauer MD Date of Service: 12/29/20 Procedure(s): CT angio chest PE protcl [id number] Accession Number(s): [id number] Report Number: [id number] WS: [id number] CTA OF THE CHEST WITH PULMONARY EMBOLISM PROTOCOL TECHNIQUE: High-resolution contrast enhanced CTA of the chest with coronal and sagittal reformatted images with pulmonary embolism protocol. MIP images are also reviewed. CLINICAL INFORMATION: eval pe, also look for dissection COMPARISON: None. DLP: 2182.[address] scans at [facility] use at least one of these dose optimization techniques: automated exposure control; mA and/or kV adjustment per patient size (includes targeted exams where dose is matched to clinical indication); or iterative reconstruction. FINDINGS: Exam is somewhat limited due to body habitus with beam hardening artifact Cardiomegaly. Proximal main pulmonary arteries are normal. Segmental and subsegmental pulmonary arteries not well evaluated. No evidence of proximal pulmonary embolus. Normal caliber thoracic aorta. No evidence of aortic dissection. Visualized upper abdominal aorta is normal. Both lungs are well aerated. No acute pulmonary infiltrates. No focal pneumonia or pleural fluid. No mediastinal or hilar lymphadenopathy. Cholecystectomy clips. Hepatomegaly. Splenomegaly. Small esophageal hiatal hernia. Adrenal glands are normal. CT/CT angio chest PE protcl [id number] IMPRESSION: 1. Exam is somewhat limited due to beam hardening artifact from body habitus. Proximal main pulmonary arteries are normal. No evidence of proximal pulmonary embolus. Distal pulmonary arteries not well evaluated. 2. Normal caliber thoracic aorta. No evidence of dissection. 3. Cardiomegaly. 4. Both lungs are well aerated. No acute pulmonary infiltrates. 5. Hepatomegaly and splenomegaly. This is stable in appearance since [address] abdomen pelvis November 05, 2020 Notified Dwight Sauer MD at 12/29/2020 8:26 AM. Dictated By:Johnny Leigh MDSigned By:Johnny Leigh MDSigned Date/Time:12/29/20827DD/ 5 Discharge Plan Discharge Patient Disposition: Home Clinical Impression: Chest pain Condition: Stable Prescriptions: New acetaminophen 500 mg tablet 500 mg PO Q6H PRN (Reason: pain) 10 Days Qty: 40 RF: 0 No Action metformin 1,000 mg tablet 1,000 mg PO BID 30 Days Qty: 60 RF: 2 sumatriptan succinate 50 mg tablet See Rx Instructions .ROUTE .COMPLEX Qty: 27 RF: 0 Tylenol Ex Str Rapid Release 500 mg Tablet 1,000 mg PO Q4H PRN (Reason: Pain) RF: 0 ibuprofen 200 mg Tablet 800 mg PO Q8H PRN (Reason: Pain) RF: 0 propranolol 20 mg tablet 20 mg PO BID PRN (Reason: Anxiety) RF: 0 melatonin 5 mg Tablet 5 mg PO BEDTIME PRN (Reason: Sleep) RF: 0 lidocaine 5 % adhesive patch,medicated 1 patch topical . DIRECTED PRN (Reason: Pain) RF: 0 duloxetine 60 mg capsule,delayed release(DR/EC) 60 mg PO DAILY RF: 0 Discharge Orders: Discharge ED (Routine); Ordered 12/29/20 Ordered By: Dwight Sauer Referrals: DUY Santoro, RESPIRATORY PHYSICIAN [Primary Care Provider] - Discharge Diet: Advance as tolerated Discharge Activity: Resume usual activity Patient Instructions: Chest Pain (ED) Activity Restrictions/Additional Instructions: Follow-up with your primary care provider for evaluation of your elevated blood pressure today. Come back to the emergency room if your chest pain worsens, if you have any weakness in your arms or legs, if you are passing out, if you have any fever or chills. Stand Alone Forms: Work/School Release Coding Level of Care Code ED Sorting Supervisor for Corinne Russell
[2020-12-29] MEDS: morphine 4 mg/mL SDV 1 mL 2 MG IVP (07:39)
[2020-12-29] MEDS: acetaminophen 500 mg Tablet PO (07:42)
[2020-12-29 07:53] LABS: Basophils # 0.1 10^3/uL (0.0-0.1); Basophils % 0.5 %; Eosinophils # 0.1 10^3/uL (0.0-0.8); Eosinophils % 0.6 %; Hematocrit 44.2 % (37.0-47.0); Hemoglobin 14.2 g/dL (11.5-15.3); Lymphocytes # 3.2 10^3/uL (0.8-4.8); Lymphocytes % 33.9 %; Mean Corpuscular HGB Conc 32.1 g/dL (30.0-36.0); Mean Corpuscular Hemoglobin 28.7 pg (28.0-34.0); Mean Corpuscular Volume 89.5 fl (81-99); Mean Platelet Volume 9.8 fL (7.4-10.4); Monocytes # 0.5 10^3/uL (0.2-0.9); Monocytes % 4.8 %; Neutrophils # 5.64 10^3/uL (1.8-7.7); Nucleated Red Blood Cells % 0 %; Platelet Count 374 10^3/cmm (130-400); Red Blood Count 4.94 10^6/uL (4.1-5.3); Red Cell Distribution Width 12.8 % (12.1-15.1); White Blood Count 9.4 10^3/uL (4.0-10.0)
[2020-12-29] MEDS: sodium chloride 0.9% 1,000 ML 999 ML IV ×2 (08:01→09:53)
[2020-12-29] MEDS: iohexol 350 mg/mL 100 mL Btl IV ×2 (08:03)
[2020-12-29 08:09] LABS: Alanine Aminotransferase 15 U/L (0-33); Albumin Level 4.4 g/dL (3.5-5.2); Alkaline Phosphatase 82 IU/L (35-105); Aspartate Amino Transferase 13 U/L (0-32); Blood Urea Nitrogen 11 mg/dL (6-20); Calcium 9.6 mg/dL (8.5-10.5); Carbon Dioxide 26 mmol/L (22-29); Chloride 101 mmol/L (98-107); Globulin 3.1 g/dL (1.3-4.6); Glomerular Filtration Rate 104.6 mL/min (90-130); Glucose 153 mg/dL (65-115); Lipase 17 U/L (13-60); Osmolality Calculated 290 mOsm/kg (285-295); Sodium 139 mmol/L (136-145); Total Bilirubin 0.2 mg/dL (0.15-1.2); Total Protein 7.5 g/dL (6.6-8.7)
[2020-12-29 08:10] LABS: Troponin(5th) Baseline 8 ng/L (0-10)
--- NOTE | 2020-12-29 08:20 | PC.PHAR ---
PT STATES SHE TAKES CARE OF HER OWN MEDICATIONS-PT STATES SHE DOESNT TAKE HER MEDICATIONS REGULARLY-PT STATES SHE HASNT FILLED HER METFORMIN IN A WHILE BECAUSE SHE HAS BEEN TAKING HER HUSBANDS-PT STATES SHE HASNT TAKEN HER DULOXETINE IN 2 WEEKS-PT HAD ZOFRAN FILLED ON 12/06/20 5D/S PT STATES SHE DOESNT HAVE ANYMORE--NOTES ARE MADE IN THE PHARMACY COMMENTS
--- NOTE | 2020-12-29 08:31 | PC.NURSE ---
This nurse placed the patient on telemetry at the time of order.
--- NOTE | 2020-12-29 09:11 | ECG_ITS ---
[facility] Test Date: 2020-12-29 Pat Name: Sharad Ghosh Department: Room: Gender: Female Police Cadet: : 2000 Requested By: Dwight Sauer Order Number: [id number] Ginger MD: Rene Gill M.D. Measurements Intervals [place] Rate: 89 P: 37 SC: 174 QRS: 4 QRSD: 122 T: 23 QT: 370 QTc: 452 Interpretive Statements SINUS RHYTHM POSSIBLE RIGHT VENTRICULAR CONDUCTION DELAY [RSR (QR) IN V1/V2] Compared to ECG 07/14/2020 23:01:00 Sinus arrhythmia no longer present Intraventricular conduction delay no longer present Electronically Signed On 12-30-2020 17:18:20 CDT by Rene Gill M.D. [id number]
[2020-12-29] MEDS: ketorolac 30 mg/mL INJ IVP (09:36)
[2020-12-29 10:09] LABS: Troponin 5 2HR 7.06 ng/L (0-10)
[2020-12-29 10:12] LABS: Troponin 5 2HR Delta -0.94 ABS# (0-10)
--- NOTE | 2020-12-30 12:44 | DCPLANNER ---
surgical manager had message to speak with patient about getting a follow up appointment with primary care physician. surgical manager spoke with patient, she stated that she has an appointment scheduled with her primary care physician. No case management needs at this time.
== END 2020-12-29 10:37 | disposition home or self-care (01) ==
PROVIDERS: Emergency Provider Emergency Medicine; PCP Nurse Practitioner Family
DX: R07.9 Chest pain, unspecified (principal); I11.9 Hypertensive heart disease without heart failure; R16.2 Hepatomegaly with splenomegaly, not elsewhere classified; E11.9 Type 2 diabetes mellitus without complications; Z79.84 Long term (current) use of oral hypoglycemic drugs
CPT/HCPCS: 71045; 71275; 80053; 83690; 84484; 85025; 93005; 96361; 96374; 96375; 99284; J1885; J2270; J7030; Q9967

== ENCOUNTER 2020-12-30 21:15 | Emergency (ER) | payer OTHER, SELFPAY ==
--- NOTE | 2020-12-30 21:23 | XRR_ITS ---
PROCEDURE INFORMATION: Exam: XR Chest Exam date and time: 12/30/2020 9:23 PM Age: 20 years old Clinical indication: Sternal or substernal pain; Patient HX: Cp, HTN TECHNIQUE: Imaging protocol: XR of the chest. Views: 1 view. COMPARISON: CR XR chest 1V portable [id number] 12/29/2020 7:20 AM FINDINGS: Lungs: Unremarkable. No consolidation. Pleural spaces: Unremarkable. No pleural effusion. No pneumothorax. Heart/Mediastinum: Unremarkable. No cardiomegaly. Bones/joints: Unremarkable. Other findings: Patient rotation to the left. XR/XR chest 1V portable [id number] IMPRESSION: No acute findings. Radiation Dose CTDIVOL = (mGy): DLP = (mGy-cm)
--- NOTE | 2020-12-30 21:23 | ECG_ITS ---
[facility] Test Date: 2020-12-30 Pat Name: Sharad Ghosh Department: Room: Gender: Female Razor Grinder: : 2000 Requested By: Tyrone Lund Order Number: [id number] Ginger MD: Rene Gill M.D. Measurements Intervals [place] Rate: 82 P: 159 LA: 170 QRS: 202 QRSD: 122 T: 175 QT: 372 QTc: 435 Interpretive Statements ECTOPIC ATRIAL RHYTHM RIGHT AXIS DEVIATION [QRS AXIS > 100] POSSIBLE RIGHT VENTRICULAR CONDUCTION DELAY [RSR (QR) IN V1/V2] MODERATE ST DEPRESSION [0.05+ mV ST DEPRESSION] Compared to ECG 12/29/2020 09:21:10 Ectopic atrial rhythm now present Right-axis deviation now present ST (T wave) deviation now present Sinus rhythm no longer present Electronically Signed On 12-30-2020 22:18:34 CDT by Rene Gill M.D. [id number] f
[2020-12-30 21:47] VITALS: BP 184/120; PULSE 74; RESP 20; TEMP 36.5; O2SAT 98; BMI 60.5
[2020-12-30 22:35] LABS: Basophils % 0.4 %; Eosinophils # 0.1 10^3/uL (0.0-0.8); Eosinophils % 1.1 %; Hematocrit 40.5 % (37.0-47.0); Lymphocytes # 1.9 10^3/uL (0.8-4.8); Lymphocytes % 24.5 %; Mean Corpuscular HGB Conc 32.1 g/dL (30.0-36.0); Mean Corpuscular Volume 90.2 fl (81-99); Mean Platelet Volume 9.9 fL (7.4-10.4); Monocytes # 0.4 10^3/uL (0.2-0.9); Monocytes % 5.3 %; Neutrophils # 5.37 10^3/uL (1.8-7.7); Neutrophils % 68.3 %; Nucleated Red Blood Cells % 0 %; Platelet Count 337 10^3/cmm (130-400); Red Blood Count 4.49 10^6/uL (4.1-5.3); Red Cell Distribution Width 12.8 % (12.1-15.1); White Blood Count 7.9 10^3/uL (4.0-10.0)
[2020-12-30 22:47] LABS: D Dimer <= 0.27 ug/mIFEU (0-0.59)
[2020-12-30 22:51] LABS: Troponin(5th) Baseline 6 ng/L (0-10)
[2020-12-30 22:53] LABS: Alanine Aminotransferase 12 U/L (0-33); Albumin Level 4.3 g/dL (3.5-5.2); Alkaline Phosphatase 74 IU/L (35-105); Anion Gap 15.3 (5-19); Aspartate Amino Transferase 9 U/L (0-32); Blood Urea Nitrogen 12 mg/dL (6-20); Calcium 9.2 mg/dL (8.5-10.5); Carbon Dioxide 25 mmol/L (22-29); Chloride 103 mmol/L (98-107); Glomerular Filtration Rate 199.6 mL/min (90-130); Glucose 179 mg/dL (65-115); Osmolality Calculated 292 mOsm/kg (285-295); Potassium 4.3 mmol/L (3.5-5.1); Sodium 139 mmol/L (136-145); Total Bilirubin 0.2 mg/dL (0.15-1.2); Total Protein 7.3 g/dL (6.6-8.7)
--- NOTE | 2020-12-30 23:23 | ECG_ITS ---
[facility] Test Date: 2020-12-30 Pat Name: Sharad Ghosh Department: Room: Gender: Female New Accounts Banking Representative: : 2000 Requested By: Tyrone Lund Order Number: [id number] Reading MD: HOLDEN MCHUGH Measurements Intervals [place] Rate: 82 P: 159 [place]: 170 QRS: 202 QRSD: 122 T: 175 QT: 372 QTc: 435 Interpretive Statements SINUS RHYTHM RIGHT AXIS DEVIATION [QRS AXIS > 100] POSSIBLE RIGHT VENTRICULAR CONDUCTION DELAY [RSR (QR) IN V1/V2] MODERATE ST DEPRESSION [0.05+ mV ST DEPRESSION] Compared to ECG 12/29/2020 09:21:10 NO CHANGE Electronically Signed On 01-01-2021 0:04:45 CDT by HOLDEN MCHUGH [email or web address].[email or web address]/store/[id number]
--- NOTE | 2020-12-31 00:02 | W.ED.CHESTPA ---
HPI - Chest Pain General: Chief Complaint: Chest Pain Stated Complaint: cp, high bp Time Seen by Provider: 12/31/20 00:02 History of Present Illness: HPI narrative: 20-year-old female comes in today with complaints of chest discomfort and elevated blood pressure. Patient reports that she has some high blood pressure at times and when she has her blood pressure elevated she gets some chest discomfort. Patient is following with her primary care provider and they recommended a echocardiogram and cardiology follow-up. Patient is awaiting for these follow-up appointments. Patient appears well. Patient appears no acute distress. MD complaint: chest discomfort Review of Systems General: Reports: 10 or more systems reviewed and unremarkable except in HPI and below Card: Reports: chest pain [facility] ED PFSH: Medical History (Updated 12/31/20 @ 00:40 by MIKE Downs) Amenorrhea Anxiety Arrhythmia Cardiomegaly delivery delivered Chest pain Depression Diabetes mellitus, type II Fatigue History of pancreatitis Hypertension screen Psychiatric care Strep pharyngitis Surgical History Status post cholecystectomy Social History Smoking and tobacco status: never smoked Second hand smoke exposure: No Alcohol intake: never Desire information about alcohol rehabilitation?: No Counseling given: No Desire information about substance/drug rehabilitation?: No Counseling given: No Caregiver/support person: Yes Lives independently: Yes Household members: spouse Female Reproductive History: Date of last menstrual period: 12/27/20 Physical Exam Const: COMMON NORMALS: no acute distress and patient oriented x3 GENERAL APPEARANCE: cooperative HENMT: COMMON NORMALS: normocephalic, TM's normal bilaterally and Normal external nose present HEAD & SCALP: normal to inspection and normocephalic NOSE: Normal external nose present TYMPANIC MEMBRANE: TM's normal bilaterally MOUTH: Normal oral and palatal mucosa present THROAT: posterior oropharynx normal Eye: GENERAL EYE: appearance normal, both eyes and all related structures Neck/C-Spine: COMMON NORMALS: full ROM Lymph: LYMPHATIC: no lymphadenopathy noted Chest: COMMONS NORMALS: normal inspection of the chest Resp: COMMON NORMALS: normal respiratory effort EFFORT & INSPECTION: Yes able to speak in complete sentences Cardio: COMMON NORMALS: regular rate and regular rhythm RATE: regular rate RHYTHM: regular rhythm GI: COMMON NORMALS: non-tender : COMMON NORMALS: Yes no CVA tenderness BLADDER/KIDNEY EXAM: Yes no CVA tenderness Back/Pelvis: COMMON NORMALS: no CVA tenderness and thoracic and lumbar spine normal to inspection Extremity: COMMON NORMALS: normal to inspection Neuro: COMMON NORMALS: patient oriented x3 and moves all extremities Psych: COMMON NORMALS: mental status grossly normal and cooperative Skin: COMMON NORMALS: no rashes or lesions noted GENERAL SKIN EXAM: no rashes or lesions noted Course Vital Signs: Vital signs: Vital Signs Temperature 97.7 F 12/30/20 21:47 Pulse Rate 85 12/31/20 00:10 Respiratory Rate 22 H 12/31/20 00:10 Blood Pressure 162/106 12/31/20 00:10 Pulse Oximetry 99 12/31/20 00:10 MDM - Chest Pain MDM Narrative: Medical decision making narrative: 20-year-old female comes in today for concerns of chest discomfort. Patient states that she did notice that she started having some chest discomfort and that her blood pressure was real high. Patient came in for evaluation. Patient recently been evaluated in the ER and had labs and a CTA scan done. On exam lungs were clear to auscultation. Skin was warm and dry. Vital signs were normal except for some mild elevation in blood pressure at 160 systolic. Differential diagnosis includes ACS, uncontrolled hypertension, anxiety. Laboratory values were unremarkable. Troponin was negative at 2-hour. Chest x-ray indicated no abnormalities. Reviewed exam with patient recommended initiating treatment of lisinopril for hypertension and following up with primary care. Patient stated that she had talked to her primary care and she wanted her to have a echocardiogram for further evaluation and also possibly a stress test. Recommend that she continue with those plans with her primary care to monitor. Patient reported understanding. Lab Data: Labs: Lab Results 12/30/20 12/30/20 12/30/20 22:18 22:18 22:18 WBC 7.9 10^3/uL 10^3/ uL (4.0-10.0) RBC 4.49 10^6/uL 10^6 /uL (4.1-5.3) Hgb 13.0 g/dL g/dL (11.5-15.3) Hct 40.5 % % (37.0-47.0) MCV 90.2 fl fl (81-99) MCH 29.0 pg pg (28.0-34.0) MCHC 32.1 g/dL g/dL (30.0-36.0) RDW 12.8 % % (12.1-15.1) Plt Count 337 10^3/cmm 10^3 /cmm (130-400) MPV 9.9 fL fL (7.4-10.4) Neut % (Auto) 68.3 % % Lymph % (Auto) 24.5 % % [place] % (Auto) 5.3 % % Eos % (Auto) 1.1 % % Baso % (Auto) 0.4 % % Neut # (Auto) 5.37 10^3/uL 10^3 /uL (1.8-7.7) Lymph # (Auto) 1.9 10^3/uL 10^3/ uL (0.8-4.8) [place] # (Auto) 0.4 10^3/uL 10^3/ uL (0.2-0.9) Eos # (Auto) 0.1 10^3/uL 10^3/ uL (0.0-0.8) Baso # (Auto) 0.0 10^3/uL 10^3/ uL (0.0-0.1) Nucleated RBC % (a uto) 0 % % Nucleated RBCs # 0.0 /100WBC /100W BC D-Dimer <= 0.27 ug/mIFEU ug/mIFEU (0-0.59) Sodium 139 mmol/L mmol/L (136-145) Potassium 4.3 mmol/L mmol/L (3.5-5.1) Chloride 103 mmol/L mmol/L (98-107) Carbon Dioxide 25 mmol/L mmol/L (22-29) Anion Gap 15.3 (5-19) BUN 12 mg/dL mg/dL (6-20) Creatinine 0.4 mg/dL L mg/dL (0.5-0.9) GFR Calculation 199.6 mL/min H mL /min (90-130) Glucose 179 mg/dL H mg/dL (65-115) Calculated Osmolal ity 292 mOsm/kg mOsm/ kg (285-295) Calcium 9.2 mg/dL mg/dL (8.5-10.5) Total Bilirubin 0.2 mg/dL mg/dL (0.15-1.2) AST 9 U/L U/L (0-32) ALT 12 U/L U/L (0-33) Alkaline Phosphata se 74 IU/L IU/L (35-105) Troponin T Baselin e Troponin T 120 Min [place] Delta Troponin T Total Protein 7.3 g/dL g/dL (6.6-8.7) Albumin 4.3 g/dL g/dL (3.5-5.2) Globulin 3.0 g/dL g/dL (1.3-4.6) 12/30/20 12/31/20 22:18 00:04 WBC RBC Hgb Hct MCV MCH MCHC RDW Plt Count MPV Neut % (Auto) Lymph % (Auto) [place] % (Auto) Eos % (Auto) Baso % (Auto) Neut # (Auto) Lymph # (Auto) [place] # (Auto) Eos # (Auto) Baso # (Auto) Nucleated RBC % (a uto) Nucleated RBCs # D-Dimer Sodium Potassium Chloride Carbon Dioxide Anion Gap BUN Creatinine GFR Calculation Glucose Calculated Osmolal ity Calcium Total Bilirubin AST ALT Alkaline Phosphata se Troponin T Baselin e 6 ng/L ng/L (0-10) Troponin T 120 Min [place] 6.00 ng/L ng/L (0-10) Delta Troponin T 0 ABS# ABS# (0-10) Total Protein Albumin Globulin Discharge Plan Discharge Patient Disposition: Home Clinical Impression: Atypical chest pain Hypertension Qualifiers: Hypertension type: unspecified Qualified Code(s): I10 - Essential (primary) hypertension Condition: Stable Prescriptions: New lisinopril 10 mg tablet 10 mg PO DAILY Qty: 30 RF: 0 No Action metformin 1,000 mg tablet 1,000 mg PO BID 30 Days Qty: 60 RF: 2 sumatriptan succinate 50 mg tablet See Rx Instructions .ROUTE .COMPLEX Qty: 27 RF: 0 Tylenol Ex Str Rapid Release 500 mg Tablet 1,000 mg PO Q4H PRN (Reason: Pain) RF: 0 ibuprofen 200 mg Tablet 800 mg PO Q8H PRN (Reason: Pain) RF: 0 propranolol 20 mg tablet 20 mg PO BID PRN (Reason: Anxiety) RF: 0 melatonin 5 mg Tablet 5 mg PO BEDTIME PRN (Reason: Sleep) RF: 0 lidocaine 5 % adhesive patch,medicated 1 patch topical . DIRECTED PRN (Reason: Pain) RF: 0 duloxetine 60 mg capsule,delayed release(DR/EC) 60 mg PO DAILY RF: 0 acetaminophen 500 mg tablet 500 mg PO Q6H PRN (Reason: pain) 10 Days Qty: 40 RF: 0 Discharge Orders: Discharge ED (Routine); Ordered 12/31/20 Ordered By: Emil Ramirez Referrals: DUY Santoro, HEARING DOG TRAINER [Primary Care Provider] - Discharge Diet: Usual diet Discharge Activity: Increase activity as tolerated Patient Instructions: Chest Pain (ED), DASH Eating Plan (ED), Opioid Safety Activity Restrictions/Additional Instructions: Healthy diet and activity. Drink plenty of fluids. Take medications as directed. Follow-up with primary care for further instructions and reevaluation. Return to the emergency department for new concerns. Coding Level of Care Code ED Cnc Lathe Machine Operator for Corinne Russell Exam Comprehensive
[2020-12-31 00:10] VITALS: BP 162/106; PULSE 85; RESP 22; O2SAT 99
[2020-12-31] MEDS: lisinopril 10 mg Tablet PO (00:26)
[2020-12-31 00:36] LABS: Troponin 5 2HR Delta 0 ABS# (0-10)
[2020-12-31 01:00] VITALS: BP 152/103; PULSE 82; RESP 20; O2SAT 99
[2020-12-31 01:10] VITALS: BP 152/103; PULSE 80; RESP 20; O2SAT 99
== END 2020-12-31 01:08 | disposition home or self-care (01) ==
PROVIDERS: Emergency Medicine; Emergency Provider Nurse Practitioner Family; PCP Nurse Practitioner Family
DX: R07.89 Other chest pain (principal); I10 Essential (primary) hypertension; E11.9 Type 2 diabetes mellitus without complications
CPT/HCPCS: 36415; 71045; 80053; 84484; 85025; 85378; 93005; 99284

== ENCOUNTER → 2021-01-03 12:03 | Outpatient (BNVA) | payer OTHER, SELFPAY | PROVIDERS: PCP Nurse Practitioner Family; Visit Provider Family Medicine | DX: R07.89 Other chest pain (principal); R06.02 Shortness of breath | CPT/HCPCS: 84443 ==

== ENCOUNTER 2021-01-06 23:53 | Emergency (ER) | payer OTHER, SELFPAY ==
[2021-01-07 00:02] VITALS: BP 140/108; PULSE 109; RESP 18; TEMP 36.6; O2SAT 98; BMI 61.7
[2021-01-07] MEDS: amlodipine 5 mg Tablet PO (00:44)
--- NOTE | 2021-01-07 00:56 | W.ED.DIZZY ---
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 She was sitting watching the patient. She has had episodes of this over the last couple weeks at least. Was seen here in the ER and also at primary care clinic. Lab test performed EKGs were done. Patient does have intermittent sinus tachycardia. Patient had dizziness when this happened. She did not feel like she is going to pass out she just felt lightheaded. Patient is diabetic and has not been monitoring sugars regularly but when she does she says random are fastings in about the 150- 170 range. She does keep track of pulse and blood pressure with an arpita on her phone. She said her heart rate has ranged from down the 40s up into the 120s. Blood pressures maintained high despite being on lisinopril. Patient also has generalized anxiety. She felt like anxiety has not been a problem here recently. Have a 3-year-old child at home. 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 Patient denies chest pain shortness of breath. MD elicited complaint: dizziness and lightheadedness Onset (ago): month(s) Associated symptoms: Reports no associated symptoms; Denies chest pain, chills, headache(s), nausea, nasal congestion or vomiting Associated neuro symptoms: Reports no associated symptoms Review of Systems Const: Denies: fever(s), chills or body aches Eyes: Denies: change in vision or blurry vision ENMT: Denies: throat pain or nasal congestion Card: Reports: other (Rapid heart rate at times.); Denies: chest pain or dyspnea on exertion Resp: Denies: dyspnea, productive cough or non-productive cough GI: Denies: abdominal pain, nausea or vomiting Musc: Denies: extremity pain Skin/Breast: Denies: rash Neuro: Reports: dizziness (When heart rate is elevated); Denies: headache(s) Psych: Denies: anxiety or depression Jeff/Lymph: Denies: easy bruising PFS ED PFSH: Medical History Amenorrhea Anxiety Arrhythmia Cardiomegaly delivery delivered Chest pain Depression Diabetes mellitus, type II Fatigue History of pancreatitis Hypertension screen Psychiatric care Strep pharyngitis Surgical History Status post cholecystectomy Social History Smoking and tobacco status: never smoked Second hand smoke exposure: No Alcohol intake: never Desire information about alcohol rehabilitation?: No Counseling given: No Desire information about substance/drug rehabilitation?: No Counseling given: No Caregiver/support person: Yes Lives independently: Yes Household members: spouse Female Reproductive History: Date of last menstrual period: 12/27/20 Physical Exam Const: COMMON NORMALS: no acute distress and patient oriented x3 NUTRITIONAL APPEARANCE: obese HENMT: COMMON NORMALS: normocephalic HEAD & SCALP: normal to inspection and normocephalic FACE & SINUS: normal facial exam Eye: COMMON NORMALS: conjunctivae normal GENERAL EYE: appearance normal, both eyes and all related structures CONJUNCTIVA: Yes conjunctivae normal Neck/C-Spine: COMMON NORMALS: no JVD Chest: COMMONS NORMALS: normal inspection of the chest Resp: COMMON NORMALS: normal respiratory effort and clear to auscultation bilaterally AUSCULTATION: clear to auscultation bilaterally Cardio: COMMON NORMALS: no JVD, regular rate and regular rhythm RATE: regular rate RHYTHM: regular rhythm GI: COMMON NORMALS: Normal to inspection, nondistended, normoactive bowel sounds present Extremity: COMMON NORMALS: normal to inspection and full ROM Neuro: COMMON NORMALS: patient oriented x3 Course Vital Signs: Vital signs: Vital Signs Temperature 97.9 F 01/07/21 00:02 Pulse Rate 109 H 01/07/21 00:02 Respiratory Rate 18 01/07/21 00:02 Blood Pressure 140/108 01/07/21 00:02 Pulse Oximetry 98 01/07/21 00:02 MDM - Dizziness MDM Narrative: Medical decision making narrative: Patient's heart rate has come back down here in the ER. Blood pressure maintains high. I spent a long time visit with the patient about her medications, her weight, her diabetes and hypertension and also discussed monitoring of her diabetes and hypertension. We also discussed weight loss, thyroid, stress and other related problems. Discussed her past work-ups looked at her labs from previous and EKGs from previous visit. Patient feel good to go back to work tonight. Patient willing to try amlodipine to help control heart rate and maintain healthy blood pressure. Patient has cardiology follow-up December 28 here at [facility]. Outpatient order given for Holter monitor to be applied to have readings available for cardiology appointment. Patient encouraged to continue weight loss strategies. Patient return to ER if worsening of symptoms. EKG Data^: EKG 1: EKG interpretation date: 01/07/21 EKG interpretation time: 00:07 Computer generated interpretation: Sinus rhythm incomplete right bundle branch block. Ventricular rate 90 bpm DC interval 160 ms QRS duration 118 ms QT is 357 ms Discharge Plan Discharge Patient Disposition: Home Clinical Impression: Sinus tachycardia, Generalized anxiety disorder, Mild HTN Obesity Qualifiers: Obesity type: due to excess calories Obesity classification: adult class 3 (BMI >= 40) Serious obesity comorbidity presence: with serious comorbidity Body mass index: BMI 60.0-69.9 Qualified Code(s): E66.01 - Morbid (severe) obesity due to excess calories Diabetes mellitus, type II Qualifiers: Diabetes mellitus care home insulin use: without equipment operator intermodal yard use Diabetes mellitus complication status: without complication Qualified Code(s): E11.9 - Type 2 diabetes mellitus without complications Condition: Stable Prescriptions: New amlodipine 5 mg tablet 5 mg PO DAILY Qty: 14 RF: 0 No Action metformin 1,000 mg tablet 1,000 mg PO BID 30 Days Qty: 60 RF: 2 aspirin 81 mg tablet,delayed release (DR/EC) 81 mg PO DAILY 30 Days Qty: 30 RF: 0 atorvastatin 40 mg tablet 40 mg PO DAILY 30 Days Qty: 30 RF: 0 pantoprazole [Protonix] 40 mg tablet,delayed release (DR/EC) 40 mg PO DAILY 30 Days Qty: 30 RF: 0 albuterol sulfate 90 mcg/actuation HFA aerosol inhaler 1 inh inhalation QID PRN (Reason: shortness of breath or wheezing) Qty: 8.5 RF: 0 sumatriptan succinate 50 mg tablet See Rx Instructions .ROUTE .COMPLEX Qty: 27 RF: 0 lisinopril 10 mg tablet 10 mg PO DAILY Qty: 30 RF: 0 Tylenol Ex Str Rapid Release 500 mg Tablet 1,000 mg PO Q4H PRN (Reason: Pain) RF: 0 ibuprofen 200 mg Tablet 800 mg PO Q8H PRN (Reason: Pain) RF: 0 propranolol 20 mg tablet 20 mg PO BID PRN (Reason: Anxiety) RF: 0 melatonin 5 mg Tablet 5 mg PO BEDTIME PRN (Reason: Sleep) RF: 0 lidocaine 5 % adhesive patch,medicated 1 patch topical . DIRECTED PRN (Reason: Pain) RF: 0 duloxetine 60 mg capsule,delayed release(DR/EC) 60 mg PO DAILY RF: 0 acetaminophen 500 mg tablet 500 mg PO Q6H PRN (Reason: pain) 10 Days Qty: 40 RF: 0 Discharge Orders: Discharge ED (Routine); Ordered 01/07/21 Ordered By: Diomedes Lakhani Referrals: DUY Santoro, PURIFICATION SUPERVISOR [Primary Care Provider] - Discharge Diet: Usual diet Discharge Activity: Resume usual activity Activity Restrictions/Additional Instructions: Follow-up with medical provider as directed. Take medications as prescribed. Return to the ER or your medical provider if condition worsens. Please read and understand discharge instructions. If any questions ask please. Contact cardiology and give him outpatient order for Holter monitor. Keep appoint with cardiology. Check blood sugars at least twice a day. Maintain good strict diabetic diet. Monitor blood pressures twice a day also. Coding Level of Care Code ED Respiratory Therapist Assistant for Corinne Fwd Exam Comprehensive
[2021-01-07 01:26] VITALS: BP 127/77; PULSE 80; RESP 18; O2SAT 97
--- NOTE | 2021-01-07 03:40 | ECG_ITS ---
[facility] Test Date: 2021-01-07 Pat Name: Sharad Ghosh Department: Room: Gender: Female Intervention Specialist: : 2000 Requested By: Diomedes Lakhani Order Number: [id number] Ginger MD: Rene Gill M.D. Measurements Intervals [place] Rate: 98 P: 38 VA: 160 QRS: 6 QRSD: 118 T: 27 QT: 357 QTc: 457 Interpretive Statements SINUS RHYTHM INCOMPLETE RIGHT BUNDLE BRANCH BLOCK [90+ ms QRS DURATION, TERMINAL R IN V1/V2, 40+ ms S IN I/aVL/V4/V5/V6] Compared to ECG 12/30/2020 21:58:38 Incomplete right bundle-branch block now present Right-axis deviation no longer present ST (T wave) deviation no longer present Electronically Signed On 01-07-2021 19:52:46 MARKETING ANALYTICS ANALYST by Rene Gill M.D. [id number] f
== END 2021-01-07 01:05 | disposition home or self-care (01) ==
PROVIDERS: Emergency Provider Nurse Practitioner Family; PCP Nurse Practitioner Family
DX: R00.0 Tachycardia, unspecified (principal); F41.1 Generalized anxiety disorder; I10 Essential (primary) hypertension; E11.9 Type 2 diabetes mellitus without complications; E66.01 Morbid (severe) obesity due to excess calories; Z79.84 Long term (current) use of oral hypoglycemic drugs; Z79.82 Long term (current) use of aspirin
CPT/HCPCS: 93005; 99283

== ENCOUNTER 2021-03-02 06:56 | Outpatient (CLI) | payer BC, SELFPAY ==
[2021-03-02 07:07] VITALS: BMI 61.7
--- NOTE | 2021-03-02 07:21 | PC.NURSE ---
pt refused test and signed waiver.
--- NOTE | 2021-03-02 07:28 | NMCV_ITS ---
NM rachel perf SPECT r/s* [id number] Sharad Ghosh Age: 21 Gender: F : 2000 Exam Date: 03/02/2021 08:07 Ordering Phys: DUY Santoro APRN Technologist: LELA Rader Exam Location: [facility] Indications: CHEST PAIN STRESS TEST Please [facility] for [facility] IMAGE PROTOCOL Rest/Stress 1 Lexiscan Day Radiopharmaceutical Dose (mCi) Administration Site Administered by Rest: Tc-99m 10.9 IV LELA Bernardo Sestamibi Stress:Tc-99m 33.0 IV LELA Bernardo Sestamibi Rest: 02-Mar-2021 60 Discovery 630 Stress: 02-Mar-2021 30 Discovery 630 0.4mg Lexiscan. Images obtained in supine and prone position. SPECT RESULTS Technical Quality: Excellent Raw Data Analysis: Normal, Breast attenuation, Soft tissue attenuation PT WT 443# Image Corrections: No attenuation or motion correction applied Summed Stress Score: 13 Summed Rest Score: 9 Summed Difference Score: 5 PERFUSION FINDINGS Medium-sized area fixed perfusion defect noted in mid to distal lateral and inferolateral wall suggestive of old myocardial infarction versus scarring. Large area of severe reversibility noted in basal to distal inferior wall suggestive of ischemia in general however in the absence of wall motion abnormality could be attenuation artifact. Medium-sized area of moderate reversibility noted in basal to distal anterior wall which also could be artifact in the absence of wall motion abnormality however further exploration with left heart catheter CT angio of coronary arteries should be considered along with clinical correlation. FUNCTIONAL RESULTS (calculated via Gated SPECT) Stress Image LV EF (%): 56 Stress EDV (mL):195 TID: 0.87 Stress ESV (mL):85 FUNCTIONAL FINDINGS: There is normal left ventricular systolic function. IMPRESSIONS Medium-sized area of severe reversibility suspicious for ischemia noted in the inferior wall, medium-sized area of severe reversibility noted in basal to mid anterior wall suggestive of possible ischemia. Old myocardial infarction versus scarring noted in mid to distal inferior and inferolateral wall. Please note that in the absence of wall motion abnormality it could be an artifact. Clinical correlation advised. EKG segment will be documented separately. Deborah Vergara MD (Electronically Signed) Final Date: 02 March 2021 18:16 S
--- NOTE | 2021-03-02 07:28 | ECG_ITS ---
[facility] Test Date: 2021-03-02 Pat Name: Sharad Ghosh Department: Room: Gender: Female Air Conditioning Supervisor: aMe Sahu : 2000 Requested By: DUY Santoro Order Number: [id number] Ginger MD: HOLDEN MCHUGH Interpretive Statements NAME OF STUDY: LEXISCAN SESTAMIBI STRESS TEST INDICATION: Chest Pain cardiomegaly, My Lexiscan NOTE: Please note that this is the electrocardiogram portion of the Lexiscan/Sestamibi stress test. The perfusion scan will be documented separately. DATA: Baseline heart rate was 98 beats per minute. Baseline blood pressure was 139/82 millimeters of mercury. Target heart rate was 197. Maximum heart rate achieved was 146. which was 74 % of the predicted target heart rate. Maximum blood pressure was 146/94 millimeters of mercury. The reason for ending the test was completion of the protocol. The patient did not experience any symptoms. ELECTROCARDIOGRAM: BASELINE: Sinus rhythm. Normal axis. Interventricular conduction delay, poor R wave progression in the anterior leads, otherwise no ST-T changes suggestive of ischemia noted. No arrhythmia noted. EXERCISE: After Lexiscan injection, no ST-T changes suggestive of ischemic noted. No arrhythmia noted. CONCLUSION: Please note due to baseline abnormality of the EKG specificity and sensitivity of the EKG portion of LexiScan MIBI stress test will be low 1. EKG not suggestive of ischemia 2. Lexiscan injection unremarkable. 3. Perfusion scan will be documented separately. Electronically Signed On 03-06-2021 15:07:14 LABORER WHARF by HOLDEN MCHUGH [email or web address]
[2021-03-02] MEDS: regadenoson 0.4 Mg/5 ml Syringe IVP (08:55)
[2021-03-02 09:05] VITALS: BP 127/66; PULSE 98
== END 2021-03-02 06:57 | disposition home or self-care (01) ==
LOC: CDL 06:59
PROVIDERS: PCP Nurse Practitioner Family; Visit Provider Nurse Practitioner Family
DX: R07.9 Chest pain, unspecified (principal); I51.7 Cardiomegaly; R06.02 Shortness of breath
CPT/HCPCS: 78452; 93017; A9500; J2785

== ENCOUNTER → 2021-03-21 11:40 | Outpatient (BNVA) | payer BC, SELFPAY | PROVIDERS: PCP Nurse Practitioner Family; Visit Provider Internal Medicine Cardiovascular Disease | DX: R94.39 Abnormal result of other cardiovascular function study (principal); I51.7 Cardiomegaly; R07.9 Chest pain, unspecified; R06.02 Shortness of breath | CPT/HCPCS: 80048; 80053; 83735; 83880; 85025; 85610 ==

== ENCOUNTER → 2021-03-23 09:51 | Outpatient (BNVA) | payer BC, SELFPAY | PROVIDERS: PCP Nurse Practitioner Family; Visit Provider Internal Medicine Cardiovascular Disease | DX: Z20.822 Contact with and (suspected) exposure to COVID-19 (principal); R79.89 Other specified abnormal findings of blood chemistry; I49.9 Cardiac arrhythmia, unspecified; I51.7 Cardiomegaly; R94.39 Abnormal result of other cardiovascular function study; R07.9 Chest pain, unspecified; R06.02 Shortness of breath | CPT/HCPCS: 84443; 87635 ==

== ENCOUNTER 2021-03-28 05:58 | Outpatient (CLI) | payer BC, SELFPAY ==
[2021-03-28] VITALS (19 sets, daily range): BP systolic 104–138; BP diastolic 54–106; PULSE 52–84; RESP 4–32; TEMP 36.5; O2SAT 94–98; BMI 61.4
--- NOTE | 2021-03-28 | XACV_ITS ---
Exam Room: 2 Ht: 180 cm Wt: 200 kg BSA: 3.29 m2 Gender: Female : 2000 Any Known Allergies: No known allergies Exam Priority: Routine Procedure(s): Procedure Description: Diagnostic procedure Procedure Description: Coronary Angiography Diagnostic Cath Status: Elective Diagnostic Findings * No disease noted in the Left Main, Left Anterior Descending, Right, or Circumflex coronary arteries. * Abnormal stress test with exertional chest pain and shortness of breath. Conclusions 1. Left dominant circulation. 2. No disease noted in the Left Main, Left Anterior Descending, Right, or Circumflex coronary arteries. Recommendations * Continue current medical management and risk factor modification. Diagnostic RX Recommendation: none Pressures Phase:Rest AO : 158 / 102 ( 127 ) @ 7:00:00 AM 160 / 112 ( 134 ) @ 7:02:00 AM Clinical Evaluation EBL: 5mL-10mL Procedural Details Procedure Consent Obtained. Admit Source: Out Patient. Pre-Procedure Time Out. Identified patient by full name and date of as verbalized by the patient/guarantor. Does the consent match the physician's order: Yes. Accurate & Complete Informed Consent: Yes. Inpatient/Outpatient History & Physical on Chart: Yes. If H&P is completed, is and addenduem needed: Yes. Visualize and Verify Site with Patient/Guarantor: N/A. Relevant Radiology Images available: Yes. The risks, benefits, and alternatives of sedation and/or procedure were discussed by physician. The patient agrees to continue. Procedure started. [facility] Clinical Fraility Score: 3: Managing Well. Manager Technical Support Indications: New Onset Angina. Chest Pain Symptom Assessment: Typical Angina Symptoms. Cardiovascular Instability: No. Correct patient, site and procedure confirmed by cath team. PERRLA. Strong, equal hand poolroom/poolhall manager bilaterally. Lungs clear x 5 lobes. IV Site on Arrival: 20 gauge in the left anticubital. Pre Procedural Pulses: bilateral dorsalis pedis was 2+. Pre Procedural Pulses: right posterior tibial was 2+. Pre Procedural Pulses: left posterior tibial was Doppled. Pre Procedural Pulses: right radial was 2+. Oxygen started at 2liters/min via nasal canula. bilateral groins was prepped with chloroprep then draped in the usual sterile fashion. right radial was prepped with chloroprep then draped in the usual sterile fashion. Physician notified. Baseline sample Acquired. HR: [address] Hill to help Dr. Vergara. [facility] scrubbing and Marilou Leon RN circulating. Physician arrived. Physician scrubbed in. Immediate Pre-Procedure Time Out. Correct Patient: Yes; Correct Procedure: Yes; Correct Site: Yes; Correct Patient Position: Yes; Correct Supplies: Yes; Dried Flammable Prep: Yes; Blood Products Available: N/A;. Lidocaine 1% infiltrated to the right radial. Arterial access obtained. A 6 [place] citizen TIG catheter in over wire. Mervat Johnson RT was relieved by Miladys Avila RT(R) as monitoring person. Catheter removed over the standard wire. A 5 [place] citizen Ham catheter in over wire. Multiple views taken of right coronary artery. Catheter redirected to the LCA. Multiple views taken of left coronary artery. Physician review of cine films. Catheter removed over the standard wire. A TR Band was successful obtaining hemostatsis at the Right Radial artery insertion site. Post Procedure: Pulses reassessed and unchanged. PERRLA. Strong, equal hand poolroom/poolhall manager bilaterally. No VTE prophylaxis required. Medication's Wasted: Lidocaine 1% = 18 mL. Medication's Wasted: Nitro = 49.8 mg. Medication's Wasted: Heparin = 1000 units. Total IV fluids: 21 mL. Contrast type used: Omnipaque 300 mgI/mL, 500 mL bottle. Complications: None. Estimated blood loss: 5mL-10mL. Responsiveness - Normal response to verbal stimuli; alert and oriented, PERRLA. Airway - Unaffected, no intervention required; spontaneous ventilation. Circulation: W/N/L, pulses unchanged. Nausea/Vomiting: No. Procedure completed. Patient transferred by wheelchair to CPRU. Vital chart was stopped. Access Site Site: Right Radial artery Sheath Size: 6 Fr Hemostasis Method: TR Band Hemostasis Success: Successful Procedure Medications Start: 8:29 AM Stop: 8:29 AM Medication: Versed Amount: 1 mg Route: I.V. Start: 8:29 AM Stop: 8:29 AM Medication: Fentanyl Amount: 50 mcg Route: I.V. Start: 8:33 AM Stop: 8:33 AM Medication: Versed Amount: 1 mg Route: I.V. Start: 8:38 AM Stop: 8:38 AM Medication: Versed Amount: 1 mg Route: I.V. Start: 8:38 AM Stop: 8:38 AM Medication: Fentanyl Amount: 50 mcg Route: I.V. Start: 8:39 AM Stop: 8:39 AM Medication: Nitrogylcerin Amount: 200 mcg Route: I.A. Start: 8:49 AM Stop: 8:49 AM Medication: Heparin Amount: 5000 units Route: I.V. Start: 8:54 AM Stop: 8:54 AM Medication: Versed Amount: 1 mg Route: I.V. Start: 8:58 AM Stop: 8:58 AM Medication: Fentanyl Amount: 50 mcg Route: I.V. I, the attending physician, have reviewed and verified all procedure medications. Yes, all medications given per verbal order History/Risk Factors Hypertension: Yes Dyslipidemia: Yes Peripheral Arterial Disease (PAD): No Myocardial Infarction (CO): No Obesity: Yes Renal Disease: No Tobacco Use: Never Prior Interventions PCI: No CABG: No Valve Surgery: No Report Signatures Amended by Hui Fontaine MD on 04/02/2021 11:44 AM Finalized by Hui Fontaine MD on 04/02/2021 11:39 AM
[2021-03-28 07:01] LABS: HCG, Serum Qual Negative (Negative)
--- NOTE | 2021-03-28 08:28 | W.PM.OPSUD ---
Surgery/Procedure H&P Update DATE OF PROCEDURE: March 28, 2021 DATE H&P PERFORMED: 03/08/21 PRIMARY INDICATION FOR PROCEDURE: Abnormal stress test, exertional shortness of breath and chest pain PLANNED PROCEDURE: Operation Date: 03/28/21 07:00 Proposed Procedures p Cardiac Catheterization(Left) - Deborah Vergara MD PATIENT REASSESSED PRIOR TO SEDATION, WITH NO CHANGE NOTED: Yes PHYSICAL EXAM: alert, oriented x 3, clear to auscultation bilaterally and regular rate & rhythm AIRWAY EVAL/ANESTHESIA PLAN: normal airway, ASA II, Risks, benefits & alternatives of sedation and/or procedure discussed and Patient agrees to continue as planned ADDITIONAL INFORMATION: Risks and benefits were discussed with the patients. Possible complications including but not limited to hematoma, bruising, coronary perforation, risk of renal failure, pericardial effusion, [place], stroke and was discussed with the patient and her . Plan is to proceed with the procedure.
--- NOTE | 2021-03-28 12:28 | PC.NURSE ---
No problems or difficulties during the deflation process. No redness or swelling noted of the insertion site.
== END 2021-03-28 12:20 | disposition home or self-care (01) ==
PROVIDERS: PCP Nurse Practitioner Family; Visit Provider Internal Medicine Cardiovascular Disease
DX: R94.39 Abnormal result of other cardiovascular function study (principal); R06.02 Shortness of breath; R07.9 Chest pain, unspecified; F41.9 Anxiety disorder, unspecified; F32.9 Major depressive disorder, single episode, unspecified; Z79.82 Long term (current) use of aspirin; E11.9 Type 2 diabetes mellitus without complications; Z79.84 Long term (current) use of oral hypoglycemic drugs; E78.5 Hyperlipidemia, unspecified; R79.89 Other specified abnormal findings of blood chemistry; I10 Essential (primary) hypertension; E66.9 Obesity, unspecified; Z68.44 Body mass index [BMI] 60.0-69.9, adult
CPT/HCPCS: 36415; 84703; 93454; C1769; C1887; C1894; J1644; J2250; J3010; J3490; J7030; Q0163; Q9967

== ENCOUNTER 2021-07-26 12:19 | Emergency (ER) | payer BC, SELFPAY ==
[2021-07-26 12:26] VITALS: BP 165/107; PULSE 79; RESP 18; TEMP 36.6; O2SAT 97; BMI 58.6
--- NOTE | 2021-07-26 12:39 | ED_ITS ---
HPI - General Adult General: Chief complaint: Psychiatric Symptoms Stated complaint: SI Time Seen by Provider: 07/26/21 12:22 History of Present Illness: HPI: [21]yo patient w/ hx of depression and anxiety presenting for suicidal ideation and depression. He tells me that she is not currently taking any medication for depression. She has been depressed for the last 3 months. Earlier today, patient told one of her coworker that she she was feeling suicidal. Patient does not have any active plan. On arrival, the patient is AAOx3 and cooperative with my evaluation. No focal complaints of chest pain, shortness of breath, palpitations, N/V, focal GI/ complaints. Currently denies HI. No complaints of hallucinations. Onset: acute Duration: ongoing Location: home Severity: severe Associated symptoms: Deny chest pain, dyspnea, nausea, rash, palpitations or vomiting Review of Systems Const: Denies: fever(s) or chills Eyes: Denies: change in vision ENMT: Denies: mouth pain Card: Denies: chest pain or palpitations Resp: Denies: dyspnea or non-productive cough GI: Denies: abdominal pain, nausea, vomiting or diarrhea : Denies: dysuria Musc: Denies: extremity pain Skin/Breast: Denies: rash or new lesions Neuro: Denies: weakness in extremities Psych: Reports: depression Jeff/Lymph: Denies: easy bruising PFSH ED PFSH: Medical History Acute otitis media, bilateral Amenorrhea Anxiety Arrhythmia Cardiomegaly delivery delivered Chest pain Depression Diabetes mellitus, type II Dyslipidemia Essential hypertension Fatigue History of pancreatitis Hypertension screen Psychiatric care Strep pharyngitis Surgical History Status post cholecystectomy Social History Smoking and tobacco status: never smoked Second hand smoke exposure: No Alcohol intake: never Desire information about alcohol rehabilitation?: No Counseling given: No Desire information about substance/drug rehabilitation?: No Counseling given: No Caregiver/support person: Yes Lives independently: Yes Household members: spouse Female Reproductive History: Date of last menstrual period: 10/15/20 Physical Exam Const: COMMON NORMALS: alert HENMT: COMMON NORMALS: atraumatic HEAD & SCALP: atraumatic MOUTH: moist mucous membranes not abnormal Eye: COMMON NORMALS: EOMs intact bilaterally and conjunctivae normal CONJUNCTIVA: Yes conjunctivae normal Neck/C-Spine: COMMON NORMALS: full ROM and supple Resp: COMMON NORMALS: normal respiratory effort and clear to auscultation bilaterally AUSCULTATION: clear to auscultation bilaterally Cardio: COMMON NORMALS: regular rate RATE: regular rate GI: COMMON NORMALS: Soft to palpation and non-tender PALPATION: Yes Soft to palpation Extremity: COMMON NORMALS: full ROM Neuro: SENSORIUM/ORIENTATION: Yes alert MOTOR EXAM: No Abnormal motor strength present and Other motor observations present (no focal motor deficits) Psych: COMMON NORMALS: speech normal SPEECH: Yes normal speech MOOD & AFFECT: Yes depressed mood Course Vital Signs: Vital signs: Vital Signs Temperature 98 F 07/26/21 17:28 Pulse Rate 78 07/26/21 17:28 Respiratory Rate 18 07/26/21 17:28 Blood Pressure 136/81 07/26/21 17:28 Pulse Oximetry 96 07/26/21 17:28 MDM - General Adult Medical Decision Making [21]yo patient w/ hx of anxiety, depression presenting for depression with SI. HDS, exam within normal limit Thoughts are linear and organized, and the patient has no AH/VH, or HI. Clinically the patient displays no overt toxidrome; they are well appearing, with low suspicion for toxic ingestion given history and exam. Symptoms unlikely 2/2 anemia, hypothyroidism, infection, or ICH. [519pm] On reassessment, labs and workup wnl. Patient is hemodynamically stable with no acute medical complaints. Case discussed with psychiatric provider Dr. Rosado at [facility] psych inpatient who evaluated patient via telepsych and recommended discharge with close follow-up. Rx fluoxetine 20mg daily for depression Disposition: Discharge Discharge Plan Discharge Patient Disposition: Home Clinical Impression: Depression Condition: Stable Prescriptions: New Prozac 20 mg capsule 20 mg PO DAILY 30 Days Qty: 30 0RF No Action levothyroxine [Levo-T] 25 mcg tablet 25 mcg PO DAILY 30 Days Qty: 30 2RF metoprolol tartrate 50 mg tablet See Rx Instructions PO DAILY 30 Days Qty: 45 1RF Rx Instructions: 1 tab (50mg) a.m. and 1/2 tab at hs PO daily; metformin 1,000 mg tablet 1,000 mg PO BID 30 Days Qty: 60 2RF aspirin 81 mg tablet,delayed release (DR/EC) 81 mg PO DAILY 30 Days Qty: 30 0RF atorvastatin 40 mg tablet 40 mg PO DAILY 30 Days Qty: 30 0RF duloxetine 30 mg capsule,delayed release(DR/EC) PO 0RF sumatriptan succinate 50 mg tablet See Rx Instructions PO .COMPLEX Qty: 30 0RF Rx Instructions: take 1 tab at onset of headache; if no relief may repeat 1 tab after at least 2 hrs; max = 2 tabs/24 hr PO mupirocin 2 % ointment 1 applic topical BID Qty: 15 0RF hydrochlorothiazide 12.5 mg tablet 25 mg PO DAILY Qty: 180 2RF potassium gluconate 600 mg (99 mg) tablet 600 mg PO DAILY 0RF magnesium oxide 400 mg magnesium tablet 400 mg PO DAILY Qty: 90 3RF hydroxyzine HCl 10 mg tablet See Rx Instructions .ROUTE .COMPLEX Qty: 20 0RF Dose Instruction: TAKE 1 TABLET BY MOUTH 3 TIMES DAILY NEEDED FOR ANXIETY Rx Instructions: TAKE 1 TABLET BY MOUTH 3 TIMES DAILY NEEDED FOR ANXIETY amlodipine 5 mg tablet 5 mg PO DAILY Qty: 14 0RF acetaminophen 500 mg Tablet 1,000 mg PO Q4H PRN (Reason: Pain) 0RF ibuprofen 200 mg Tablet 800 mg PO Q8H PRN (Reason: Pain) 0RF lidocaine 5 % adhesive patch,medicated 1 patch topical . DIRECTED PRN (Reason: Pain) 0RF Rx Instructions: wear for 12 hours then off for 12 hours Discharge Orders: Discharge ED (Routine); Ordered 07/26/21 Ordered By: Dwight Sauer Referrals: DUY Santoro, DECISION ANALYST [Primary Care Provider] - Discharge Diet: Advance as tolerated Discharge Activity: Increase activity as tolerated Patient Instructions: Depression (ED) Activity Restrictions/Additional Instructions: Please come back to the emergency room if you need help, have any hallucinations, or you have any depression or have thoughts about hurting yourself or other people. Coding Level of Care Code ED Section Maintainer for Corinne Fwkassandra Exam Comprehensive
[2021-07-26 12:48] VITALS: BP 133/79; PULSE 72; RESP 18; TEMP 36.6; O2SAT 98
[2021-07-26 17:28] VITALS: BP 136/81; PULSE 78; RESP 18; TEMP 36.6; O2SAT 96
== END 2021-07-26 17:30 | disposition home or self-care (01) ==
PROVIDERS: Emergency Provider Emergency Medicine; PCP Nurse Practitioner Family
DX: F32.A Depression, unspecified (principal)
CPT/HCPCS: 99283

== ENCOUNTER → 2021-11-23 16:22 | Outpatient (BNVA) | payer BC, SELFPAY | PROVIDERS: PCP Family Medicine; Visit Provider Family Medicine | DX: Z01.818 Encounter for other preprocedural examination (principal); F98.8 Other specified behavioral and emotional disorders with onset usually occurring in childhood and adolescence; I10 Essential (primary) hypertension; E78.5 Hyperlipidemia, unspecified; E11.9 Type 2 diabetes mellitus without complications | CPT/HCPCS: 80053; 81025; 83036; 84443; 84702; 85025 ==

== ENCOUNTER → 2022-01-03 12:33 | Outpatient (BNVA) | payer BC, SELFPAY | PROVIDERS: PCP Family Medicine; Visit Provider Family Medicine | DX: E11.9 Type 2 diabetes mellitus without complications (principal); T78.1XXA Other adverse food reactions, not elsewhere classified, initial encounter; E66.01 Morbid (severe) obesity due to excess calories; Z68.44 Body mass index [BMI] 60.0-69.9, adult; Z91.018 Allergy to other foods; F41.9 Anxiety disorder, unspecified; F43.12 Post-traumatic stress disorder, chronic; F98.8 Other specified behavioral and emotional disorders with onset usually occurring in childhood and adolescence | CPT/HCPCS: 86003; 86008 ==